=== PATIENT | female | born 1975 | race Caucasian/White ===

== ENCOUNTER 2018-06-20 01:07 | Observation (INO) ==
[2018-06-20] MEDS ORDERED: Sod Chloride 0.9% Inj 1,000 ML IV.SIG ONE (01:58)
--- NOTE | 2018-06-20 02:16 | XR ---
EXAM DATE: 06/20/2018 1:58 AM EDT AGE/SEX: 43 years / Female INDICATIONS: Shortness of breath. CLINICAL DATA: This is the patient's initial encounter. Patient reports that signs and symptoms have been present for 2 days and indicates a pain score of 0/10. MEDICAL/SURGICAL HISTORY: None. None. COMPARISON: No prior exams available for comparison. FINDINGS: Portable AP view of the chest demonstrates a normal-sized cardiac silhouette. No effusion, consolidat ion, or pneumothorax is identified. The bones and soft tissues demonstrate no acute finding. CONCLUSION: No acute cardiopulmonary abnormality is identified. Electronically signed by: Ivan Garcia MD 06/20/2018 2:14 AM EDT
[2018-06-20 02:17] LABS: Baso # (Auto) 0.1 th/mm3 (0.0-0.2); Baso % (Auto) 0.6 % (0.0-2.0); Eos % (Auto) 0.1 % (0.0-4.0); Hematocrit 40.3 % (35.0-46.0); Hemoglobin 14.4 gm/dL (11.6-15.3); Lymph # (Auto) 2.5 th/mm3 (1.0-4.8); Lymph % (Auto) 27.6 % (9.0-44.0); Mean Corpuscular HGB Conc 35.7 % (32.0-36.0); Mean Corpuscular Hemoglobin 31.8 pg (27.0-34.0); Mean Corpuscular Volume 88.9 fL (80.0-100.0); Mean Platelet Volume 7.7 fL (7.0-11.0); Mono # (Auto) 0.6 th/mm3 (0.0-0.9); Mono % (Auto) 6.6 % (0.0-8.0); Neut # (Auto) 5.9 th/mm3 (1.8-7.7); Neut % (Auto) 65.1 % (16.0-70.0); Platelet Count 330 th/mm3 (150-450); Red Blood Count 4.54 mil/mm3 (4.00-5.30); Red Cell Distribution Width 16.8 % (11.6-17.2); White Blood Count 9.1 th/mm3 (4.0-11.0)
--- NOTE | 2018-06-20 02:30 | CT ---
EXAM DATE: 06/20/2018 2:07 AM EDT AGE/SEX: 43 years / Female INDICATIONS: Altered mental status. CLINICAL DATA: This is the patient's initial encounter. Patient reports that signs and symptoms have been present for 1 day and indicates a pain score of 0/10. MEDICAL/SURGICAL HISTORY: Hepatitis C. Drug abuse. None. RADIATION DOSE: 56.35 CTDI (mGy) COMPARISON: No prior exams available for comparison. TECHNIQUE: CT of the head without contrast. Using automated exposure control and adjustment of the mA and/or kV according to patient size, radiation dose was kept as low as reasonably achievable to ob tain optimal diagnostic quality images. DICOM format image data is available electronically for revi ew and comparison. FINDINGS: Cerebrum: The ventricles are normal. No midline shift, mass lesion, hemorrhage or acute infarction. No extraaxial fluid collections are seen. Posterior Fossa: The cerebellum and brainstem demonstrate no acute abnormality. The 4th ventricle is midline. The cerebellopontine angle is within normal limits. Extracranial: There is partially visualized mucoperiosteal thickening in the right maxillary antrum. The remaining visualized sinuses are clear. Skull: The calvaria is intact. No skull fracture. CONCLUSION: No acute intracranial abnormality is identified. . Electronically signed by: Ivan Garcia MD 06/20/2018 2:29 AM EDT
[2018-06-20 02:31] LABS: Anion Gap 12 meq/L (5-15)
[2018-06-20 02:44] LABS: Alanine Aminotransferase 11 U/L (10-53); Alkaline Phosphatase 66 U/L (45-117); Aspartate Aminotransferase 12 U/L (15-37); Blood Urea Nitrogen 4 mg/dL (7-18); Chloride 104 meq/L (98-107); Glomerular Filtration Rate 28 mL/min (>89); Glucose,Random 107 mg/dL (74-106); Lipase 232 U/L (73-393); Potassium 3.3 meq/L (3.5-5.1); Sodium 142 meq/L (136-145); Total Protein 7.7 g/dL (6.4-8.2)
--- NOTE | 2018-06-20 03:11 | ED ---
HPI General Chief Complaint: Psychiatric Symptoms Stated Complaint: Mental status Time Seen by Provider: 06/20/18 01:58 Source: patient and EMS Mode of arrival: EMS Limitations: no limitations History of Present Illness HPI Narrative: 43-year-old female reportedly found in the street with altered mentation and complaining of depression. Patient was transported with normal range vital signs except for mild sinus tachycardia. Patient admits to having history of anxiety depression and being depressed at this time. Patient potentially drank alcohol reportedly in excess trying to harm herself. Patient states she wants to she is very depressed and told the nurse that she wants to kill herself. Denies substance use or medication overdose. complaint: Reports suicidal ideation and feels depressed Onset (ago): minute(s) Duration: constant History of same: Yes Relieving factors: none Exacerbating factors: alcohol Context: Reports recent alcohol abuse Associated psychiatric symptoms: Reports depression and suicidal ideation; Denies homicidal ideation, racing thoughts, auditory hallucinations, visual hallucinations and delusions Associated symptoms: Denies confusion, headache, shortness of breath, nausea, vomiting, syncope and insomnia Treatments prior to arrival: Reports none If self harm: admits thoughts of self harm and has acted on plan (Intentional excessive alcohol use) Related Data Home Medications Medication Instructions Recorded Confirmed buprenorphine-naloxone [Suboxone] 8 mg SUBLINGUAL TID 04/12/18 06/20/18 gabapentin [Neurontin] 300 mg PO BID 04/12/18 06/20/18 lamotrigine [Lamictal] 15 mg PO DAILY 04/12/18 06/20/18 Allergies Allergy/AdvReac Type Severity Reaction Status Date / Time No Known Allergies Allergy Unverified 06/20/18 01:28 Review of Systems ROS: all other systems reviewed are negative [facility] Medical History Medical History Abuse of both oxycodone and heroin (Acute) Alcoholic (Acute) Depression (Acute) Hepatitis C (Acute) Molly (Acute) Surgical History Surgical History Gastric bypass status for obesity (Acute) Social History Social History Substance History: Past History Second Hand Smoke Exposure: No Smoking Status: Current every day smoker Tobacco Type: Cigarettes How Often Do You Have a Drink Containing Alcohol: 2 to 3 times a week Recent Travel in [place] within the Last 8 Weeks: No Recent Out of Country Travel within the Last 8 Weeks: No Immunization History Tetanus Immunization: Unsure Tetanus Immunization Year if Known: 2009 Exam Narrative Exam Narrative: GENERAL: Well-developed well-nourished female no acute distress no respiratory distress GCS 14 SKIN: Focused skin assessment warm/dry. HEAD: Atraumatic. Normocephalic. No scalp soft tissue swelling abrasion laceration or bony abnormality. EYES: Pupils equal and round and reactive to light. No scleral icterus. No injection or drainage. Her ocular muscles intact. ENT: No nasal bleeding or discharge. Mucous membranes pink and moist. Airway is patent. NECK: Trachea midline. No JVD. Supple no meningismus no nuchal rigidity. CARDIOVASCULAR: Increased regular rate and rhythm. No murmur appreciated. RESPIRATORY: No accessory muscle use. Clear to auscultation. Breath sounds equal bilaterally. Clear to auscultation bilaterally GASTROINTESTINAL: Abdomen soft, non-tender, nondistended. Hepatic and splenic margins not palpable. Positive bowel sounds soft nontender distended nontender no guarding or rebound MUSCULOSKELETAL: No obvious deformities. No clubbing. No cyanosis. No edema. NEUROLOGICAL: Awake but drowsiness. No obvious cranial nerve deficits. Motor grossly within normal limits. Normal speech. PSYCHIATRIC: Depressed mood and affect; poor insight and judgment. Course Initial Documented Vital Signs Temperature 98.8 F 06/20/18 01:28 Pulse Rate 109 H 06/20/18 01:28 Respiratory Rate 18 06/20/18 01:28 Blood Pressure 118/74 06/20/18 01:28 Pulse Oximetry 100 06/20/18 01:28 Last Documented Vital Signs Temperature 98.4 F 06/20/18 07:04 Pulse Rate 102 H 06/20/18 11:00 Respiratory Rate 18 06/20/18 11:00 Blood Pressure 119/78 06/20/18 11:00 Pulse Oximetry 97 06/20/18 11:00 Sign Out Sign Out Data: Patient Sign Out occurred on 06/20/18 at 09:34. Patient's care was discussed, and care was transferred from Kalyani Diaz MD to Sree Vázquez MD. Sign Out Comment: 43-year-old female with history of anxiety depression admits to depression and wanting to tell herself is a Parks act for suicidal ideation admitted to alcohol ingestion identified to have minimally elevated alcohol level salicylate level of 4.4 patient has repeat BMP, salicylate level, serum osmolality level and beta hydroxybutyric acid level due at 9:45 AM care signed over to oncoming physician Dr. Frias for follow-up of pending labs and patient disposition for medical clearance for psychiatric admission for suicidal ideation and depression Last updated by Kalyani Diaz MD at 06/20/18 07:51 Post-Handoff Eval: This case is checked out to me by Dr. Diaz. I have evaluated the patient. I reviewed the lab studies. The second set of labs are sent somewhat improved. She still has prominent ketone smelling breath. She does not feel well. The nurse is reviewed again with poison control and she is not medically cleared at this point. They recommend at least 4 more hours of IV fluid followed by another round of metabolic lab studies. I discussed with the hospitalist who will admit here to the hospital with psychiatric consultation as she is under the Parks act. She does admit to drinking a bottle of rubbing alcohol along with a lot of beers. Medical Decision Making MDM Narrative Medical decision making narrative: Patient with intentional alcohol consumption and admits to being depressed wanting to harm herself and stating she wants to . Patient placed on monitor IV access obtained specimens collected and sent for resulting Parks act ordered Patient administered IV fluid bolus Patient resting comfortably mild hypokalemia additional bolus of normal saline poison control contacted recommends obtaining additional basic metabolic panel pain hydroxybutyric acid and serum osmole laterality. At 7 AM patient is asleep but easily awakened and otherwise resting comfortably waiting additional lab work per poison control prior to medical clearance for psychiatric evaluation and admission Medical Screen Exam Complete: Yes Emergency Medical Condition: Yes Differential Diagnosis Differential Diagnosis: Alcohol ingestion, polysubstance ingestion, intentional overdose, arrhythmia, electrolyte disturbance, ICH, minor closed head injury, Medical Records Medical records reviewed: Yes I reviewed the patient's medical records. Lab Data Lab results reviewed: Yes I reviewed the patient's lab results. Result diagrams: 06/20/18 02:00 06/20/18 09:30 POC Results POC Urine Results Negative Lab Results 06/20/18 06/20/18 06/20/18 Range/Units 02:00 02:00 02:00 WBC 9.1 (4.0-11.0) th/mm3 RBC 4.54 (4.00-5.30) mil/mm3 Hgb 14.4 (11.6-15.3) gm/dL Hct 40.3 (35.0-46.0) % MCV 88.9 (80.0-100.0) fL MCH 31.8 (27.0-34.0) pg MCHC 35.7 (32.0-36.0) % RDW 16.8 (11.6-17.2) % Plt Count 330 (150-450) th/mm3 MPV 7.7 (7.0-11.0) fL Neut % (Auto) 65.1 (16.0-70.0) % Lymph % (Auto) 27.6 (9.0-44.0) % [place] % (Auto) 6.6 (0.0-8.0) % Eos % (Auto) 0.1 (0.0-4.0) % Baso % (Auto) 0.6 (0.0-2.0) % Neut # (Auto) 5.9 (1.8-7.7) th/mm3 Lymph # (Auto) 2.5 (1.0-4.8) th/mm3 [place] # (Auto) 0.6 (0.0-0.9) th/mm3 Eos # (Auto) 0.0 (0.0-0.4) th/mm3 Baso # (Auto) 0.1 (0.0-0.2) th/mm3 WBC Differential . Differential Comment Auto diff final PT 10.0 (9.8-11.6) sec INR 1.0 Ratio Sodium 142 (136-145) meq/L Potassium 3.3 L (3.5-5.1) meq/L Chloride 104 (98-107) meq/L Carbon Dioxide 26.0 (21.0-32.0) meq/L Anion Gap 12 (5-15) meq/L BUN 4 L (7-18) mg/dL Creatinine 1.97 H (0.50-1.00) mg/dL Estimated GFR 28 L (>89) mL/min Random Glucose 107 H (74-106) mg/dL Osmolality (275-295) mosm/kg Lactic Acid (0.4-2.0) mmol/L Calcium 9.0 (8.5-10.1) mg/dL Total Bilirubin 0.3 (0.2-1.0) mg/dL AST 12 L (15-37) U/L ALT 11 (10-53) U/L Alkaline Phosphatase 66 (45-117) U/L Troponin I Less than 0.02 L (0.02-0.05) ng/mL Total Protein 7.7 (6.4-8.2) g/dL Albumin 4.0 (3.4-5.0) g/dL Lipase 232 (73-393) U/L Beta-Hydroxybutyric Acd (0.00-0.39) mmol/L Urine Color (Yellw/Straw) Urine Clarity (Clear) Urine pH (5.0-8.5) Ur Specific [place] (1.002-1.035) Urine Protein (Neg-Trace) mg/dL Urine Glucose (UA) (Negative) mg/dL Urine Ketones (Negative) mg/dL Urine Occult Blood (Negative) Urine Nitrate (Negative) Urine Bilirubin (Negative) Urine Urobilinogen (Less than 2) mg/dL Ur Leukocyte Esterase (Negative) Urine RBC (0-3) /hpf Urine WBC (0-5) /hpf Ur Squamous Epith Cells (0-5) /hpf Urine Bacteria (None) /hpf Urine Mucus (Occasional) /lpf Micro UA Comment Ur Microscopic Review Urine Culture Comments Salicylates (2.8-20.0) mg/dL Urine Opiates Screen (Neg) Acetaminophen Less than 2.0 L (10.0-30.0) mcg/mL Ur Barbiturates Screen (Neg) Ur Amphetamines Screen (Neg) U Benzodiazepines Scrn (Neg) Urine Cocaine Screen (Neg) U Cannabinoids Screen (Neg) Serum Alcohol Less than 3 (0-5) mg/dL 06/20/18 06/20/18 06/20/18 Range/Units 02:00 02:05 03:10 WBC (4.0-11.0) th/mm3 RBC (4.00-5.30) mil/mm3 Hgb (11.6-15.3) gm/dL Hct (35.0-46.0) % MCV (80.0-100.0) fL MCH (27.0-34.0) pg MCHC (32.0-36.0) % RDW (11.6-17.2) % Plt Count (150-450) th/mm3 MPV (7.0-11.0) fL Neut % (Auto) (16.0-70.0) % Lymph % (Auto) (9.0-44.0) % [place] % (Auto) (0.0-8.0) % Eos % (Auto) (0.0-4.0) % Baso % (Auto) (0.0-2.0) % Neut # (Auto) (1.8-7.7) th/mm3 Lymph # (Auto) (1.0-4.8) th/mm3 [place] # (Auto) (0.0-0.9) th/mm3 Eos # (Auto) (0.0-0.4) th/mm3 Baso # (Auto) (0.0-0.2) th/mm3 WBC Differential Differential Comment PT (9.8-11.6) sec INR Ratio Sodium (136-145) meq/L Potassium (3.5-5.1) meq/L Chloride (98-107) meq/L Carbon Dioxide (21.0-32.0) meq/L Anion Gap (5-15) meq/L BUN (7-18) mg/dL Creatinine (0.50-1.00) mg/dL Estimated GFR (>89) mL/min Random Glucose (74-106) mg/dL Osmolality (275-295) mosm/kg Lactic Acid 1.8 (0.4-2.0) mmol/L Calcium (8.5-10.1) mg/dL Total Bilirubin (0.2-1.0) mg/dL AST (15-37) U/L ALT (10-53) U/L Alkaline Phosphatase (45-117) U/L Troponin I (0.02-0.05) ng/mL Total Protein (6.4-8.2) g/dL Albumin (3.4-5.0) g/dL Lipase (73-393) U/L Beta-Hydroxybutyric Acd (0.00-0.39) mmol/L Urine Color (Yellw/Straw) Urine Clarity (Clear) Urine pH (5.0-8.5) Ur Specific [place] (1.002-1.035) Urine Protein (Neg-Trace) mg/dL Urine Glucose (UA) (Negative) mg/dL Urine Ketones (Negative) mg/dL Urine Occult Blood (Negative) Urine Nitrate (Negative) Urine Bilirubin (Negative) Urine Urobilinogen (Less than 2) mg/dL Ur Leukocyte Esterase (Negative) Urine RBC (0-3) /hpf Urine WBC (0-5) /hpf Ur Squamous Epith Cells (0-5) /hpf Urine Bacteria (None) /hpf Urine Mucus (Occasional) /lpf Micro UA Comment Ur Microscopic Review Urine Culture Comments Salicylates 4.4 (2.8-20.0) mg/dL Urine Opiates Screen Neg (Neg) Acetaminophen (10.0-30.0) mcg/mL Ur Barbiturates Screen Neg (Neg) Ur Amphetamines Screen Neg (Neg) U Benzodiazepines Scrn Neg (Neg) Urine Cocaine Screen Neg (Neg) U Cannabinoids Screen Neg (Neg) Serum Alcohol (0-5) mg/dL 06/20/18 06/20/18 06/20/18 Range/Units 03:10 03:45 09:30 WBC (4.0-11.0) th/mm3 RBC (4.00-5.30) mil/mm3 Hgb (11.6-15.3) gm/dL Hct (35.0-46.0) % MCV (80.0-100.0) fL MCH (27.0-34.0) pg MCHC (32.0-36.0) % RDW (11.6-17.2) % Plt Count (150-450) th/mm3 MPV (7.0-11.0) fL Neut % (Auto) (16.0-70.0) % Lymph % (Auto) (9.0-44.0) % [place] % (Auto) (0.0-8.0) % Eos % (Auto) (0.0-4.0) % Baso % (Auto) (0.0-2.0) % Neut # (Auto) (1.8-7.7) th/mm3 Lymph # (Auto) (1.0-4.8) th/mm3 [place] # (Auto) (0.0-0.9) th/mm3 Eos # (Auto) (0.0-0.4) th/mm3 Baso # (Auto) (0.0-0.2) th/mm3 WBC Differential Differential Comment PT (9.8-11.6) sec INR Ratio Sodium 143 142 (136-145) meq/L Potassium 3.1 L 4.2 D (3.5-5.1) meq/L Chloride 106 111 H (98-107) meq/L Carbon Dioxide 25.9 25.7 (21.0-32.0) meq/L Anion Gap 11 5 (5-15) meq/L BUN 5 L 5 L (7-18) mg/dL Creatinine 1.95 H 1.69 H (0.50-1.00) mg/dL Estimated GFR 28 L 33 L (>89) mL/min Random Glucose 108 H 101 (74-106) mg/dL Osmolality 327 H (275-295) mosm/kg Lactic Acid (0.4-2.0) mmol/L Calcium 8.4 L 8.0 L (8.5-10.1) mg/dL Total Bilirubin (0.2-1.0) mg/dL AST (15-37) U/L ALT (10-53) U/L Alkaline Phosphatase (45-117) U/L Troponin I (0.02-0.05) ng/mL Total Protein (6.4-8.2) g/dL Albumin (3.4-5.0) g/dL Lipase (73-393) U/L Beta-Hydroxybutyric Acd 0.43 H (0.00-0.39) mmol/L Urine Color Red (Yellw/Straw) Urine Clarity Clear (Clear) Urine pH 8.0 (5.0-8.5) Ur Specific [place] 1.003 (1.002-1.035) Urine Protein 100 H (Neg-Trace) mg/dL Urine Glucose (UA) Negative (Negative) mg/dL Urine Ketones Trace H (Negative) mg/dL Urine Occult Blood Large H (Negative) Urine Nitrate Negative (Negative) Urine Bilirubin Negative (Negative) Urine Urobilinogen Less than 2 (Less than 2) mg/dL Ur Leukocyte Esterase Trace H (Negative) Urine RBC 2 (0-3) /hpf Urine WBC 7 H (0-5) /hpf Ur Squamous Epith Cells 1 (0-5) /hpf Urine Bacteria Moderate H (None) /hpf Urine Mucus Few H (Occasional) /lpf Micro UA Comment Culture indicated Ur Microscopic Review Not Reportable Urine Culture Comments Culture indicated Salicylates (2.8-20.0) mg/dL Urine Opiates Screen (Neg) Acetaminophen (10.0-30.0) mcg/mL Ur Barbiturates Screen (Neg) Ur Amphetamines Screen (Neg) U Benzodiazepines Scrn (Neg) Urine Cocaine Screen (Neg) U Cannabinoids Screen (Neg) Serum Alcohol (0-5) mg/dL 06/20/18 06/20/18 Range/Units 09:30 09:30 WBC (4.0-11.0) th/mm3 RBC (4.00-5.30) mil/mm3 Hgb (11.6-15.3) gm/dL Hct (35.0-46.0) % MCV (80.0-100.0) fL MCH (27.0-34.0) pg MCHC (32.0-36.0) % RDW (11.6-17.2) % Plt Count (150-450) th/mm3 MPV (7.0-11.0) fL Neut % (Auto) (16.0-70.0) % Lymph % (Auto) (9.0-44.0) % [place] % (Auto) (0.0-8.0) % Eos % (Auto) (0.0-4.0) % Baso % (Auto) (0.0-2.0) % Neut # (Auto) (1.8-7.7) th/mm3 Lymph # (Auto) (1.0-4.8) th/mm3 [place] # (Auto) (0.0-0.9) th/mm3 Eos # (Auto) (0.0-0.4) th/mm3 Baso # (Auto) (0.0-0.2) th/mm3 WBC Differential Differential Comment PT (9.8-11.6) sec INR Ratio Sodium (136-145) meq/L Potassium (3.5-5.1) meq/L Chloride (98-107) meq/L Carbon Dioxide (21.0-32.0) meq/L Anion Gap (5-15) meq/L BUN (7-18) mg/dL Creatinine (0.50-1.00) mg/dL Estimated GFR (>89) mL/min Random Glucose (74-106) mg/dL Osmolality 321 H (275-295) mosm/kg Lactic Acid (0.4-2.0) mmol/L Calcium (8.5-10.1) mg/dL Total Bilirubin (0.2-1.0) mg/dL AST (15-37) U/L ALT (10-53) U/L Alkaline Phosphatase (45-117) U/L Troponin I (0.02-0.05) ng/mL Total Protein (6.4-8.2) g/dL Albumin (3.4-5.0) g/dL Lipase (73-393) U/L Beta-Hydroxybutyric Acd 0.17 (0.00-0.39) mmol/L Urine Color (Yellw/Straw) Urine Clarity (Clear) Urine pH (5.0-8.5) Ur Specific [place] (1.002-1.035) Urine Protein (Neg-Trace) mg/dL Urine Glucose (UA) (Negative) mg/dL Urine Ketones (Negative) mg/dL Urine Occult Blood (Negative) Urine Nitrate (Negative) Urine Bilirubin (Negative) Urine Urobilinogen (Less than 2) mg/dL Ur Leukocyte Esterase (Negative) Urine RBC (0-3) /hpf Urine WBC (0-5) /hpf Ur Squamous Epith Cells (0-5) /hpf Urine Bacteria (None) /hpf Urine Mucus (Occasional) /lpf Micro UA Comment Ur Microscopic Review Urine Culture Comments Salicylates 4.1 (2.8-20.0) mg/dL Urine Opiates Screen (Neg) Acetaminophen (10.0-30.0) mcg/mL Ur Barbiturates Screen (Neg) Ur Amphetamines Screen (Neg) U Benzodiazepines Scrn (Neg) Urine Cocaine Screen (Neg) U Cannabinoids Screen (Neg) Serum Alcohol (0-5) mg/dL Imaging Data Radiologist's impression: Chest X-Ray 06/20/18 01:58 CONCLUSION: No acute cardiopulmonary abnormality is identified. Head CT 06/20/18 01:58 CONCLUSION: No acute intracranial abnormality is identified. . ECG Data EKG Prior to Arrival: No Interpretation: EKG: Sinus tachycardia rate [address] elevation injury pattern or ectopy noted Discharge Plan Discharge Disposition Patient Disposition: 30 Still Patient Discharge Details Diagnosis: Suicidal ideation, Drug-induced psychotic disorder, Depression, Toxic effect of rubbing alcohol Physicians Team ED Provider: Sree Vázquez Primary Care Provider: Primary Care Luz Cardnoa Rxs /Orders / Referrals /Forms Prescriptions: No Action lamotrigine [Lamictal] 25 mg Tablet 15 mg PO DAILY RF: 0 gabapentin [Neurontin] 300 mg Capsule 300 mg PO BID RF: 0 buprenorphine-naloxone [Suboxone] 8-2 mg Film 8 mg Sublingual TID RF: 0 Discharge Interventions Interventions: Vital Signs Last Done: 06/20/18 11:00 Status ED Status: With Doctor
[2018-06-20] MEDS ORDERED: Sod Chloride 0.9% Inj 1,000 ML IV.SIG SCH (03:15)
[2018-06-20 03:35] LABS: Bacteria,Urine Moderate /hpf; Bilirubin,Urine Negative (Negative); Clarity,Urine Clear (Clear); Color,Urine Red (Yellw/Straw); Glucose,Urine (UA) Negative (Negative); Leukocyte Esterase,Urine Trace (Negative); Mucus,Urine Few /lpf (Occasional); Nitrite,Urine Negative (Negative); Specific Gravity,Urine 1.003 (1.002-1.035); Squamous Epithelial Cell,Urine 1 /hpf (0-5)
[2018-06-20 03:40] LABS: Amphetamine Screen,Urine Neg (Neg); Barbiturate Screen,Urine Neg (Neg); Cannabinoid Screen,Urine Neg (Neg); Cocaine Screen,Urine Neg (Neg)
[2018-06-20 03:41] LABS: Opiate Screen,Urine Neg (Neg)
[2018-06-20 04:22] LABS: Beta Hydroxybutyric Acid 0.43 mmol/L (0.00-0.39); Calcium 8.4 mg/dL (8.5-10.1); Carbon Dioxide 25.9 meq/L (21.0-32.0); Potassium 3.1 meq/L (3.5-5.1)
--- NOTE | 2018-06-20 08:48 | ECG ---
Date Performed: 06/20/2018 Time Performed: 02:29:35 PTAGE: 43 years EKG: SINUS TACHYCARDIA ABNORMAL RHYTHM ECG PREVIOUS TRACING : 09/04/1999 09.40 No significant change from previous tracing noted. DOCTOR: Ulysses Stacy Interpretating Date/Time 06/20/2018 08:46:56
[2018-06-20 10:18] LABS: Carbon Dioxide 25.7 meq/L (21.0-32.0); Potassium 4.2 meq/L (3.5-5.1)
[2018-06-20 10:22] LABS: Beta Hydroxybutyric Acid 0.17 mmol/L (0.00-0.39)
[2018-06-20] MEDS ORDERED: Bisacodyl 10 MG Supp RECTAL PRN (11:30)
--- NOTE | 2018-06-20 11:52 | P.HP ---
History of Present Illness Service: Hospitalist Primary Care Physician: No Primary Care Physician Chief Complaint: Ethanol, isopropyl alcohol ingestion, suicidal attempt History of Present Illness: Ms. El is a 43-year-old female with a history of depression, Hep C who was brought to the hospital under [place] act due to altered mental status, depression, suicidal attempt/ideation, ethanol and isopropyl alcohol use. Patient states that she has been drinking heavily in the last few weeks and yesterday she has been drinking also isopropyl alcohol (rubbing alcohol). She feels that her life is spiraling down and she wanted to end it all yesterday. Her source of depression is from various sources and could not specify. At the time of this interview, patient still has suicidal thoughts. She denies any chest pain, shortness of breath, fever or chills. No changes in bowel or bladder habits. Patient remains under [place] act. Due to isopropyl alcohol use , poison control was contacted. Hospitalist service was requested to manage this patient until medically cleared. Past medical history: Hepatitis C, depression, alcoholism Surgical history: Gastric bypass surgery, breast reduction surgery. Social history: Patient smokes about a pack a day. She has been drinking heavy in the last few weeks. She also drank isopropyl alcohol Family history: Mother had depression as well. Review of Systems All other systems reviewed negative except as stated in HPI PMFSH - History History Provided By: Patient, Regional Merchandising Manager / EMT - Medical History Medical History: Medical History (Last Reviewed 06/20/18 @ 07:44 by Kalyani Diaz MD) Abuse of both oxycodone and heroin Alcoholic Depression Hepatitis C Molly - Surgical History Surgical History: Surgical History (Last Reviewed 06/20/18 @ 07:44 by Kalyani Diaz MD) Gastric bypass status for obesity - Tobacco History Second Hand Smoke Exposure: No Tobacco Use In Past 30 Days: Yes Smoking Status: Current every day smoker Tobacco Type: Cigarettes - Alcohol History How Often Do You Have a Drink Containing Alcohol: 2 to 3 times a week - Substance Use History Substance History: Past History - Travel History Recent Travel in the [place] Within the Last 8 Weeks: No Recent Travel Out of the Country Within the Last 8 Weeks: No - Immunization History Tetanus Immunization: Unsure Tetanus Immunization Year if Known: 2009 Medications and Allergies Active Medications: Active Medications Al Hydroxide/Mg Hydroxide (Milk Of Magnesia Liq) 30 ml PO Q12H PRN PRN Reason: Mild Constipation Bisacodyl (Dulcolax Supp) 10 mg RECTAL DAILY PRN PRN Reason: SEVERE CONSITIPATION Sodium Chloride (Ns Inj) 1,000 mls @ 0 mls/hr IV.SIG BOLUS BRUNA Last Infusion: 06/20/18 05:47 Dose: Infused Sodium Chloride (Ns Inj) 1,000 mls @ 100 mls/hr IV.CONT .Q10H BRUNA Lactulose (Lactulose Liq) 30 ml PO DAILY PRN PRN Reason: SEVERE CONSITIPATION Ondansetron HCl (Zofran Inj) 4 mg IV.PUSH Q6H PRN PRN Reason: NAUSEA OR VOMITING Sennosides (Senokot) 17.2 mg PO Q12H PRN PRN Reason: Moderate Constipation Allergies Allergy/AdvReac Type Severity Reaction Status Date / Time No Known Allergies Allergy Unverified 06/20/18 01:28 Home Medications Medication Instructions Recorded Confirmed Type buprenorphine-naloxone [Suboxone] 8 mg SUBLINGUAL TID 04/12/18 06/20/18 History gabapentin [Neurontin] 300 mg PO BID 04/12/18 06/20/18 History lamotrigine [Lamictal] 15 mg PO DAILY 04/12/18 06/20/18 History Exam Vital signs: Vital Signs 06/20/18 01:28 06/20/18 02:00 06/20/18 03:00 Temperature 98.8 F Pulse Rate 109 H 102 H 104 H Respiratory Rate 18 16 16 Blood Pressure 118/74 110/64 111/70 Pulse Oximetry 100 97 94 L 06/20/18 04:00 06/20/18 05:00 06/20/18 06:00 Temperature Pulse Rate 100 H 109 H 103 H Respiratory Rate 16 16 14 Blood Pressure 132/90 122/89 124/74 Pulse Oximetry 98 100 97 06/20/18 07:04 06/20/18 07:14 06/20/18 08:00 Temperature 98.4 F Pulse Rate 102 H 104 H 96 H Respiratory Rate 20 64 H Blood Pressure 112/86 107/75 Pulse Oximetry 97 97 96 06/20/18 09:00 06/20/18 09:58 06/20/18 10:00 Temperature Pulse Rate 94 H 104 H 98 H Respiratory Rate 74 H 38 H 16 Blood Pressure 109/73 102/61 116/68 Pulse Oximetry 97 99 06/20/18 11:00 Temperature Pulse Rate 102 H Respiratory Rate 18 Blood Pressure 119/78 Pulse Oximetry 97 Intake & Output 06/19/18 06/20/18 06/20/18 18:59 06:59 18:59 Intake Total 2099 Output Total Balance 2099 - - Weight 68.039 kg Intake: IV 2099 NS Inj 1,000 ML @ Wide Open IV. 1999 SIG BOLUS BRUNA Rx#:[id number] Rocephin Inj 1,000 MG In NS Inj 100 / 100 100 ML @ 200 mls/hr IV.SIG ONCE ONE Rx#:[id number] Output: Urine Narrative: GENERAL: This is a well-nourished, well-developed patient, in no apparent distress. SKIN: No rashes, ecchymoses or lesions. Warm and dry. HEAD: Atraumatic. Normocephalic. No temporal or scalp tenderness. EYES: Pupils equal round and reactive. No injection or drainage. ENT: Nose without bleeding, purulent drainage or septal hematoma. Airway patent. NECK: Trachea midline. No lymphadenopathy. Supple, nontender, no meningeal signs. CARDIOVASCULAR: Regular rate and rhythm without murmurs, gallops, or rubs. No JVD. RESPIRATORY: Clear to auscultation. Breath sounds equal bilaterally. No wheezes , rales, or rhonchi. GASTROINTESTINAL: Abdomen soft, non-tender, nondistended. No guarding. MUSCULOSKELETAL: Extremities without clubbing, cyanosis, or edema. NEUROLOGICAL: Awake and alert. Cranial nerves II through XII intact. No focal neurological deficits. Normal speech. Results - Labs CBC & Chem 7: 06/20/18 02:00 06/20/18 09:30 Labs: Laboratory Results - last 24 hr 06/20/18 06/20/18 06/20/18 02:00 02:00 02:00 WBC 9.1 RBC 4.54 Hgb 14.4 Hct 40.3 MCV 88.9 MCH 31.8 MCHC 35.7 RDW 16.8 Plt Count 330 MPV 7.7 Neut % (Auto) 65.1 Lymph % (Auto) 27.6 [place] % (Auto) 6.6 Eos % (Auto) 0.1 Baso % (Auto) 0.6 Neut # (Auto) 5.9 Lymph # (Auto) 2.5 [place] # (Auto) 0.6 Eos # (Auto) 0.0 Baso # (Auto) 0.1 WBC Differential . Differential Comment Auto diff final PT 10.0 INR 1.0 Sodium 142 Potassium 3.3 L Chloride 104 Carbon Dioxide 26.0 Anion Gap 12 BUN 4 L Creatinine 1.97 H Estimated GFR 28 L Random Glucose 107 H Osmolality Lactic Acid Calcium 9.0 Total Bilirubin 0.3 AST 12 L ALT 11 Alkaline Phosphatase 66 Troponin I Less than 0.02 L Total Protein 7.7 Albumin 4.0 Lipase 232 Beta-Hydroxybutyric Acd Urine Color Urine Clarity Urine pH Ur Specific [place] Urine Protein Urine Glucose (UA) Urine Ketones Urine Occult Blood Urine Nitrate Urine Bilirubin Urine Urobilinogen Ur Leukocyte Esterase Urine RBC Urine WBC Ur Squamous Epith Cells Urine Bacteria Urine Mucus Micro UA Comment Ur Microscopic Review Urine Culture Comments Salicylates Urine Opiates Screen Acetaminophen Less than 2.0 L Ur Barbiturates Screen Ur Amphetamines Screen U Benzodiazepines Scrn Urine Cocaine Screen U Cannabinoids Screen Serum Alcohol Less than 3 06/20/18 06/20/18 06/20/18 02:00 02:05 03:10 WBC RBC Hgb Hct MCV MCH MCHC RDW Plt Count MPV Neut % (Auto) Lymph % (Auto) [place] % (Auto) Eos % (Auto) Baso % (Auto) Neut # (Auto) Lymph # (Auto) [place] # (Auto) Eos # (Auto) Baso # (Auto) WBC Differential Differential Comment PT INR Sodium Potassium Chloride Carbon Dioxide Anion Gap BUN Creatinine Estimated GFR Random Glucose Osmolality Lactic Acid 1.8 Calcium Total Bilirubin AST ALT Alkaline Phosphatase Troponin I Total Protein Albumin Lipase Beta-Hydroxybutyric Acd Urine Color Urine Clarity Urine pH Ur Specific [place] Urine Protein Urine Glucose (UA) Urine Ketones Urine Occult Blood Urine Nitrate Urine Bilirubin Urine Urobilinogen Ur Leukocyte Esterase Urine RBC Urine WBC Ur Squamous Epith Cells Urine Bacteria Urine Mucus Micro UA Comment Ur Microscopic Review Urine Culture Comments Salicylates 4.4 Urine Opiates Screen Neg Acetaminophen Ur Barbiturates Screen Neg Ur Amphetamines Screen Neg U Benzodiazepines Scrn Neg Urine Cocaine Screen Neg U Cannabinoids Screen Neg Serum Alcohol 06/20/18 06/20/18 06/20/18 03:10 03:45 09:30 WBC RBC Hgb Hct MCV MCH MCHC RDW Plt Count MPV Neut % (Auto) Lymph % (Auto) [place] % (Auto) Eos % (Auto) Baso % (Auto) Neut # (Auto) Lymph # (Auto) [place] # (Auto) Eos # (Auto) Baso # (Auto) WBC Differential Differential Comment PT INR Sodium 143 142 Potassium 3.1 L 4.2 D Chloride 106 111 H Carbon Dioxide 25.9 25.7 Anion Gap 11 5 BUN 5 L 5 L Creatinine 1.95 H 1.69 H Estimated GFR 28 L 33 L Random Glucose 108 H 101 Osmolality 327 H Lactic Acid Calcium 8.4 L 8.0 L Total Bilirubin AST ALT Alkaline Phosphatase Troponin I Total Protein Albumin Lipase Beta-Hydroxybutyric Acd 0.43 H Urine Color Red Urine Clarity Clear Urine pH 8.0 Ur Specific [place] 1.003 Urine Protein 100 H Urine Glucose (UA) Negative Urine Ketones Trace H Urine Occult Blood Large H Urine Nitrate Negative Urine Bilirubin Negative Urine Urobilinogen Less than 2 Ur Leukocyte Esterase Trace H Urine RBC 2 Urine WBC 7 H Ur Squamous Epith Cells 1 Urine Bacteria Moderate H Urine Mucus Few H Micro UA Comment Culture indicated Ur Microscopic Review Not Reportable Urine Culture Comments Culture indicated Salicylates Urine Opiates Screen Acetaminophen Ur Barbiturates Screen Ur Amphetamines Screen U Benzodiazepines Scrn Urine Cocaine Screen U Cannabinoids Screen Serum Alcohol 06/20/18 06/20/18 09:30 09:30 WBC RBC Hgb Hct MCV MCH MCHC RDW Plt Count MPV Neut % (Auto) Lymph % (Auto) [place] % (Auto) Eos % (Auto) Baso % (Auto) Neut # (Auto) Lymph # (Auto) [place] # (Auto) Eos # (Auto) Baso # (Auto) WBC Differential Differential Comment PT INR Sodium Potassium Chloride Carbon Dioxide Anion Gap BUN Creatinine Estimated GFR Random Glucose Osmolality 321 H Lactic Acid Calcium Total Bilirubin AST ALT Alkaline Phosphatase Troponin I Total Protein Albumin Lipase Beta-Hydroxybutyric Acd 0.17 Urine Color Urine Clarity Urine pH Ur Specific [place] Urine Protein Urine Glucose (UA) Urine Ketones Urine Occult Blood Urine Nitrate Urine Bilirubin Urine Urobilinogen Ur Leukocyte Esterase Urine RBC Urine WBC Ur Squamous Epith Cells Urine Bacteria Urine Mucus Micro UA Comment Ur Microscopic Review Urine Culture Comments Salicylates 4.1 Urine Opiates Screen Acetaminophen Ur Barbiturates Screen Ur Amphetamines Screen U Benzodiazepines Scrn Urine Cocaine Screen U Cannabinoids Screen Serum Alcohol - Imaging Impressions Chest X-Ray 06/20/18 01:58 CONCLUSION: No acute cardiopulmonary abnormality is identified. Head CT 06/20/18 01:58 CONCLUSION: No acute intracranial abnormality is identified. . Caprini VTE Risk Assessment Caprini VTE Risk Assessment: No/Low Risk (score <= 1) Caprini Risk Assessment Model: Point Value = 1 Point Value = 2 Point Value = 3 Point Value = 5 Age 41-60 Minor surgery BMI > 25 kg/m2 Swollen legs Varicose veins or History of unexplained or recurrent spontaneous Oral contraceptives or hormone replacement Sepsis (< 1 month) Serious lung disease, including pneumonia (< 1 month) Abnormal pulmonary function Acute myocardial infarction Congestive heart failure (< 1 month) History of inflammatory bowel disease Medical patient at bed rest Age 61-74 Arthroscopic surgery Major open surgery (> 45 min) Laparoscopic surgery (> 45 min) Malignancy Confined to bed (> 72 hours) Immobilizing plaster cast Central venous access Age >= 75 History of VTE Family history of VTE Factor V Leiden Prothrombin [id number] Lupus anticoagulant Anticardiolipin antibodies Elevated serum homocysteine Heparin-induced thrombocytopenia Other congenital or acquired thrombophilia Stroke (< 1 month) Elective arthroplasty Hip, pelvis, or leg fracture Acute spinal cord injury (< 1 month) Prophylaxis Regimen: Total Risk Factor Score Risk Level Prophylaxis Regimen 0-1 Low Early ambulation 2 Moderate Order ONE of the following: *Sequential Compression Device (SCD) *Heparin 5000 units SQ BID 3-4 Higher Order ONE of the following medications: *Heparin 5000 units SQ TID *Enoxaparin/Lovenox 40 mg SQ daily (WT < 150 kg, CrCl > 30 mL/min) *Enoxaparin/Lovenox 30 mg SQ daily (WT < 150 kg, CrCl > 10-29 mL/min) *Enoxaparin/Lovenox 30 mg SQ BID (WT < 150 kg, CrCl > 30 mL/min) AND/OR *Sequential Compression Device (SCD) 5 or more Highest Order ONE of the following medications: *Heparin 5000 units SQ TID (Preferred with Epidurals) *Enoxaparin/Lovenox 40 mg SQ daily (WT < 150 kg, CrCl > 30 mL/min) *Enoxaparin/Lovenox 30 mg SQ daily (WT < 150 kg, CrCl > 10-29 mL/min) *Enoxaparin/Lovenox 30 mg SQ BID (WT < 150 kg, CrCl > 30 mL/min) AND *Sequential Compression Device (SCD) Assessment and Plan - Plan Ms. El is a 43-year-old female who was brought to the hospital under Parks act due to altered mental status, depression, suicidal ideation and heavy alcohol use. She admitted to drinking ethanol as well as isopropyl alcohol. Acute alcohol intoxication Isopropyl alcohol abuse Suicidal ideations Severe depression -We will monitor patient's electrolytes and renal function. -Continue normal saline at 100 cc/h -Start patient on Librium 20 mg p.o. every 8 hours as well as CIWA protocol -We will initiate a sitter in the room. Psychiatric consult. -BMP this afternoon and again in the morning. -Serum Osm 327 --> 321. Beta-Hydroxybutyric 0.43 --> 0.17. -Will consult Psychiatry due to suicidal ideations/attempt, severe depression. Acute kidney injury - Creatinine 1.97 on arrival, Improved to 1.69. - Will monitor. Full code. SCDs.
[2018-06-20] MEDS ORDERED: LORazepam 1 MG Tablet PO PRN (11:55)
[2018-06-20] MEDS ORDERED: Haloperidol Inj 5 MG/ML Ampul IV.PUSH PRN (11:55)
[2018-06-20] MEDS: Sod Chloride 0.9% Inj 1,000 ML IV.CONT SCH ×2 (12:39→21:26)
[2018-06-21] MEDS: Sod Chloride 0.9% Inj 1,000 ML IV.CONT SCH ×2 (02:49→07:55)
[2018-06-21 05:28] LABS: Calcium 7.9 mg/dL (8.5-10.1); Carbon Dioxide 23.4 meq/L (21.0-32.0)
--- NOTE | 2018-06-21 09:32 | MB ---
cc: Ant Palomo MD DATE: 06/21/2018 REQUESTING PHYSICIAN: Dr. Brock. REASON FOR CONSULTATION: [place] Act due to consumption of alcohol including rubbing alcohol. Altered mental status. Severe depression, suicidal ideations. HISTORY OF PRESENT ILLNESS: Ms. Rito Oliveira is a 43-year-old female with a reported history of bipolar disorder, anxiety and PTSD, who presented to the emergency department with altered mental status and complaints of depression. She disclosed to the ED provider that she drank alcohol in excess in an attempt to hurt herself and also told the ED provider that she wanted to and was very depressed. The patient's alcohol level on presentation here was undetectable. It was subsequently uncovered that the patient had perhaps consumed isopropyl alcohol. The patient has been admitted to the medical floor for management of isopropyl alcohol ingestion. Reviewing the electronic medical record, I note that the patient was seen in the ED by the psychiatric nurse practitioner in April of this year. The patient is seen and examined. Chart reviewed. I note [place] Act initiated by ED provider on the paper chart. Case discussed with staff. Sitter is at the bedside. On my examination today, the patient says that she drank a bottle of rubbing alcohol along with some regular ethyl alcohol "to be done with myself." The patient says that she had been planning her suicide attempt the entire day. Acute stressor was court proceeding involving her mother. The patient endorses ongoing depression and suicidal ideation, although she does contract for safety inside the hospital. She says that she is "tired of always struggling." The patient does endorse a history of hypomanic/manic episodes in the past, most recently in March, saying that she was walking around in a prom dress in the middle of the night. 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 She endorses a history of childhood and early adult trauma and reports some nightmares and voices calling her name related to this history of trauma. Remainder of the psychiatric ROS is negative. She has no acute physical complaints. PAST PSYCHIATRIC HISTORY: The patient reports diagnoses as noted above. She is not presently under the care of a psychiatrist. She was previously prescribed Lamictal and gabapentin and says that these medications were efficacious for her psychiatric condition, but she was unable to continue them as she ran out of money. Most recent psychiatric admission was in 2017. She reports one previous suicide attempt by the same mechanism as current suicide attempt in 02/2018. FAMILY HISTORY: The patient reports family history of depression, anxiety, and substance use disorder. Her mother has attempted suicide in the past. CHEMICAL DEPENDENCY HISTORY: The patient reports a history of heroin and Dilaudid abuse. She says that she stopped using opiates 3 years ago and has been on Suboxone since then when she can afford it. She reports ongoing alcohol use and says that she drinks at least 8-10 beers a day. She endorses a history of blackouts, DTs and withdrawal seizures. SOCIAL HISTORY: The patient had been residing with her mother, but is now homeless. She is not presently in a partnered relationship and has a daughter who lives in [place] with daughter's father. She has limited contact with daughter. 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 She denies any history. Denies any access to guns or firearms. She is spiritual. She does endorse a history of trauma as noted above. In fact, the patient reports that she has felony charges and a court date pending for false information on a pawn slip and also dealing in stolen property. PAST MEDICAL HISTORY: The patient reports a history of seizure disorder. MEDICATIONS: The patient presently takes no home medications, but previously has been on Lamictal and gabapentin. REVIEW OF SYSTEMS: Except as noted in HPI, all this is negative. PHYSICAL EXAMINATION: VITAL SIGNS: Temperature 98.7, pulse 89, respirations 20, blood pressure 109/66, pulse oximetry 98% on room air. GENERAL: Physical examination was completed by the primary team. On my examination today, the patient appears to be in no acute physical distress. I do perceive somewhat fruity aroma in the room as I am evaluating the patient, possibly consistent with her reported ingestion of isopropyl alcohol. No signs of intoxication or withdrawal noted. LABORATORY DATA: Laboratories reviewed: CBC unremarkable. CMP reveals decreased GFR at 53. Serum osmolality 321. Beta hydroxybutyrate uric acid was initially elevated at 0.43 but has normalized to 0.17. Urinalysis results reviewed. Urine toxicology negative and alcohol level undetectable. Head CT was read as no acute intracranial abnormality. MENTAL STATUS EXAMINATION: The patient is in hospital attire. She is awake and alert and oriented x4. No motor abnormalities noted. Speech is within normal limits for rate, tone, and volume. Language and fund of knowledge are average. Focus and concentration are intact. Memory grossly intact on clinical exam. Mood is depressed and affect is restricted and consistent with stated mood. Thought process is linear. No loosening of associations. No delusional material elicited. Denies audio, visual hallucinations presently. Endorses ongoing suicidal ideation without specific plan. She does contract for safety on the inpatient unit. No suicidal intent at this time. No homicidal ideation, intent, or plan. Insight and Judgment: Insight seems fair at best and judgment is impulsive. ASSESSMENT AND PLAN: 1. Adjustment disorder with mixed disturbance of emotions and conduct, F43.25. Rule out depressive episode, possibly in the context of bipolar illness. 2. Alcohol dependence, F10.20. This is a 43-year-old female with psychiatric history as detailed above, who is presently admitted to the medical floor under a Parks Act following ingestion of isopropyl alcohol. On my examination today, the patient reports that she made the presenting ingestion in a suicide attempt and endorses ongoing suicidal ideation and low mood now. The patient has several risk factors for ongoing, including substance use and history of previous suicide attempts. The patient requires admission to the Inpatient Psychiatric Unit once medically cleared for psychiatric stabilization. I will defer psychotropic medication management to the inpatient psychiatric team. 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 I would continue the sitter for safety while the patient is on the medical unit. Case discussed with Dr. Huff who is presently attending on the case. Thank you very much for this consultation. Please call or page with questions. MD SANDIE Rodríguez/bibiana , 08:23 AM , 08:38 AM ELIANE
[2018-06-21 10:19] VITALS: O2SAT 100
--- NOTE | 2018-06-21 11:49 | P.PN ---
Subjective Interval history: Nursing denies any deterioration since last night. Nursing reports patient is tolerating p.o. intake. Patient denies any nausea vomiting. Physical Exam Vital signs: Vital Signs 06/20/18 12:00 06/20/18 16:00 06/20/18 20:00 Temperature 98.2 F 98.1 F 98.5 F Pulse Rate 84 93 H 95 H Respiratory Rate 18 16 17 Blood Pressure 115/71 111/63 107/70 Pulse Oximetry 98 98 97 06/20/18 23:48 06/21/18 00:00 06/21/18 08:00 Temperature 98.7 F 97.9 F Pulse Rate 89 90 Respiratory Rate 20 18 Blood Pressure 109/66 105/72 Pulse Oximetry 98 98 100 Intake & Output 06/20/18 06/21/18 06/21/18 18:59 06:59 18:59 Intake Total 1200 / 1200 1000 / 1000 Output Total Balance - / -1 1200 / 1200 1000 / 1000 Weight 68.6 kg Intake: IV 1000 / 1000 NS Inj 1,000 ML @ 100 mls/hr IV 1000 / 1000 .CONT .Q10H BRUNA Rx#:[id number] Oral 1200 / 1200 Output: Urine Other: # Voids 3 3 Date of Last Bowel Movement 06/19/18 06/21/18 06/21/18 Narrative: Heart sounds regular rate rhythm, no murmurs Clear lungs bilaterally, unlabored breathing Awake and alert Results - Labs CBC & Chem 7: 06/20/18 02:00 06/21/18 04:25 Laboratory Results - last 24 hr 06/21/18 04:25 Sodium 145 Potassium 4.0 Chloride 111 H Carbon Dioxide 23.4 Anion Gap 11 BUN 11 Creatinine 1.13 H Estimated GFR 53 L Random Glucose 87 Calcium 7.9 L Assessment and Plan - Plan Ms. El is a 43-year-old female who was brought to the hospital under Parks act due to altered mental status, depression, suicidal ideation and heavy alcohol use. She admitted to drinking ethanol as well as isopropyl alcohol. Acute alcohol intoxication -Resolved Isopropyl alcohol abuse -Outside of clinically high risk zone at this point -discussed with poison control, the patient's gap is closed with her osmolality down to 299. No further close monitoring warranted at this point. Acute kidney injury Near resolution with IV fluids Severe depression Suicidal ideations - psychiatry willing to take patient once medical cleared Full code. SCDs. Discharge Planning: Patient has met maximal benefit from hospitalization is clinically stable for discharge to a psychiatric facility.
[2018-06-21 13:03] VITALS: BP 131/67; PULSE 103; RESP 17; TEMP 98.2
== END 2018-06-21 16:33 ==
LOC: NEPC 01:07 → INTOOBSV 13:13 → NEDA 13:13 → N07 13:15
PROVIDERS: ADMIT Hospitalist; ATTEND Hospitalist

== ENCOUNTER 2018-06-21 16:49 | Inpatient (IN) ==
[2018-06-21] MEDS: Melatonin 5 MG Tablet PO PRN (20:51)
[2018-06-21] MEDS: LORazepam 1 MG Tablet PO PRN (20:53)
[2018-06-22] MEDS: LORazepam 1 MG Tablet PO PRN (05:53)
[2018-06-22] MEDS: Multivitamin/Minerals Therapeutic Tablet PO SCH (08:15)
[2018-06-22] MEDS: Folic Acid 1 MG Tablet PO SCH (08:15)
[2018-06-22 08:49] LABS: Calcium 8.3 mg/dL (8.5-10.1); Carbon Dioxide 27.1 meq/L (21.0-32.0); Potassium 3.8 meq/L (3.5-5.1)
[2018-06-22 08:53] LABS: Chol/HDL Ratio 1.95 Ratio; HDL Cholesterol 80.5 mg/dL (40.0-60.0)
[2018-06-22 13:03] LABS: Hemoglobin A1c 5.1 % (4.3-6.0)
[2018-06-22] MEDS ORDERED: QUEtiapine 25 MG Tablet PO ONE (14:12)
--- NOTE | 2018-06-22 14:20 | P.HPPSY ---
Provisional Diagnosis Admission Date: June 21, 2018 16:50 Competence Certification of Person's Competence To Provide Express and Informed Consent I have personally examined Mya El, a person being served at [facility] on, June 22, 2018 1413. Express and informed consent means consent voluntarily given in writing, by a competent person, after sufficient explanation and disclosure of the subject matter involved to enable the person to make a knowing and willful decision without any element of force, fraud, deceit, duress, or other form of constraint or coercion. This person is 18 years of age or older, is not now known to be incompetent to consent to treatment with a guardian advocate, and does not have a health care surrogate or proxy currently making medical treatment decisions. I have found this person to be one of the following: [X] Competent to provide express and informed consent, as defined above, for voluntary admission to this facility and is competent to provide express and informed consent for treatment. He/she has the consistent capacity to make well reasoned, willful, and knowing decisions concerning his or her medical or mental health treatment. The person fully and consistently understands the purpose of the admission for examination/placement and is fully capable of personally exercising all rights assured under [place] [] Incompetent to provide express and informed consent to voluntary admission, and this is incompetent to provide express and informed consent to treatment. The person must be transferred to involuntary status and a petition for a guardian advocate filed with the Circuit Court. [] Refusing to provide express and informed consent to voluntary admission but is competent to provide express and informed consent for treatment. The person must be discharged or transferred to involuntary status. Form shall be completed within 24 hours of a person's arrival at the receiving facility and filed in the clinical record of each person: 1. Admitted on a voluntary basis 2. Permitted to provide express and informed consent to his/her own treatment 3. Allowed to transfer from involuntary to voluntary status 4. Prior to permitting a person to consent to his or her own treatment after having been previously found incompetent to consent to treatment. History of Present Illness Capacity: Has capacity Chief Complaint: SI History of Present Illness: Patient is a 43-year-old female with an extensive history of alcohol abuse. Patient says secondary to life stressors patient had a suicide attempts with drinking rubbing alcohol. She says she normally drinks 12 pack of beer a day. However per nursing CIWA has been 0 and there is seeking Ativan. She has been homeless since April 11 which is a new status for her. During the interview she is quite irritable, demanding and entitled. Admits to depressed mood and wanting to cry most of the time. However, at this time she denies suicidal or homicidal ideas plan. Past medications include Neurontin 600 mg p.o. 3 times daily and Lamictal. Patient says she had "some facial tics with an unknown antipsychotic. Past psych: Patient admits to at least 20 inpatient admission mostly due to detox from alcohol. She has had 3 suicide attempts all being drinking rubbing alcohol. She says she has been diagnosed with PTSD depression and anxiety and possibly bipolar in the past. Not getting outpatient treatment at this time. Was on Suboxone back in April. Past medical: Seizure a disorder that is not treated, anemia, hep C Past Famhx: "Everybody is everything." Past Social: Patient is working as a prostitute. She has extensive history of substance use but most recently has been abusing alcohol. - Inpatient Certification I certify that the inpatient services were ordered in accordance with Medicare regulations governing the order. This includes certification that hospital inpatient services are reasonable and necessary and in the case of services not specified as inpatient-only under 42 CFR 419.22(n), that they are appropriately provided as inpatient services in accordance to with the 2-midnight benchmark under 43 CFR 412.3(e) I certify that inpatient psychiatric hospital services are medically necessary. Evaluation and treatment and/or diagnostic testing are expected to improve the patient's condition. The patient needs on a daily basis, active treatment furnished directly by or requiring the supervision of inpatient psychiatric facility personnel. Estimated Total Length of Stay (Days): 7 Plans for Post Hospital Care: Not yet determined Review of Systems All other systems reviewed negative except as stated in HPI [facility] - History History Provided By: Patient - Medical History Medical History: Medical History (Last Reviewed 06/22/18 @ 14:17 by Elvin Cameron DO) Abuse of both oxycodone and heroin Alcoholic Depression Hepatitis C Molly - Surgical History Surgical History: Surgical History (Last Reviewed 06/22/18 @ 14:17 by Elvin Cameron DO) Gastric bypass status for obesity - Tobacco History Second Hand Smoke Exposure: Yes Tobacco Use In Past 30 Days: Yes Smoking Status: Current every day smoker Tobacco Type: Cigarettes - Alcohol History How Often Do You Have a Drink Containing Alcohol: 4 or more times a week - Substance Use History Substance History: Active Abuse - Substance Use Type Crack/Cocaine Type: HEROIN Status: Active Route Used: Inhalation, Intravenously Comment: PT HAS A SIGNIFICANT HX OF HEROIN, CRACK, COCAINE AND WEED ABUSE, ALONG WITH 10-12 BEERS/DAY - Immunization History Tetanus Immunization Year if Known: 2009 Medications and Allergies Active Medications: Active Medications Acetaminophen (Tylenol) 650 mg PO Q4H PRN PRN Reason: Pain 1-5 or Temp >101F Al Hydrox/Mg Hydrox/Simethicone (Mag-Al Plus Susp Liq) 30 ml PO Q6H PRN PRN Reason: DYSPEPSIA Al Hydroxide/Mg Hydroxide (Milk Of Magnesia Liq) 30 ml PO Q12H PRN PRN Reason: Mild Constipation Flumazenil (Romazecon Inj) 0.2 mg IV.PUSH Q1M PRN PRN Reason: OVERSEDATION Folic Acid (Folic Acid) 1 mg PO DAILY [facility] Stop: 06/27/18 08:59 Last Admin: 06/22/18 08:15 Dose: 1 mg Gabapentin (Neurontin) 300 mg PO TID BRUNA Hydroxyzine HCl (Atarax) 50 mg PO Q6H PRN PRN Reason: ANXIETY Lorazepam (Ativan) 1 mg PO Q4H PRN PRN Reason: for CIWA 8-10 Last Admin: 06/22/18 05:53 Dose: 1 mg Lorazepam (Ativan Inj) 2 mg IV.PUSH Q2H PRN PRN Reason: for CIWA 11-14 Lorazepam (Ativan Inj) 2 mg IV.PUSH Q1H PRN PRN Reason: for CIWA 15-20 Lorazepam (Ativan Inj) 2 mg IV.PUSH Q15M PRN PRN Reason: for CIWA > 20 Lorazepam (Ativan Inj) 1 mg IV.PUSH Q4H PRN PRN Reason: for CIWA 8-10 Lorazepam (Ativan) 2 mg PO Q2H PRN PRN Reason: for CIWA 11-14 Lorazepam (Ativan Inj) 2 mg IM Q6H PRN PRN Reason: SEIZURES Melatonin (Melatonin) 5 mg PO HS PRN PRN Reason: INSOMNIA Last Admin: 06/21/18 20:51 Dose: 5 mg Multivitamins/Minerals (Theragran-M) 1 tab PO DAILY [facility] Stop: 06/27/18 08:59 Last Admin: 06/22/18 08:15 Dose: 1 tab Nicotine (Habitrol 14 Mg Patch.24 Hr) 1 patch T-DERMAL DAILY PRN PRN Reason: Nicotine craving Patch Removal (Remove Old Patch) 1 each T-DERMAL DAILY [facility] Last Admin: 06/22/18 08:18 Dose: Not Given Quetiapine Fumarate (Seroquel) 25 mg PO ONCE ONE Stop: 06/22/18 14:13 Thiamine HCl (Vitamin B1) 100 mg PO DAILY [facility] Last Admin: 06/22/18 08:15 Dose: 100 mg Allergies Allergy/AdvReac Type Severity Reaction Status Date / Time No Known Allergies Allergy Unverified 06/20/18 01:28 Home Medications Medication Instructions Recorded Confirmed Type buprenorphine-naloxone [Suboxone] 8 mg SUBLINGUAL TID 04/12/18 06/20/18 History gabapentin [Neurontin] 300 mg PO BID 04/12/18 06/20/18 History lamotrigine [Lamictal] 15 mg PO DAILY 04/12/18 06/20/18 History Results - Labs CBC & Chem 7: 06/22/18 07:36 Labs: Laboratory Results - last 24 hr 06/22/18 06/22/18 07:36 07:36 Sodium 143 Potassium 3.8 Chloride 111 H Carbon Dioxide 27.1 Anion Gap 5 BUN 14 Creatinine 0.82 Estimated GFR 76 L Random Glucose 87 Hemoglobin A1c 5.1 Calcium 8.3 L Triglycerides 70 Cholesterol 157 LDL Cholesterol, Calc 63 HDL Cholesterol 80.5 H Cholesterol/HDL Ratio 1.95 Exam Vital signs: Vital Signs 06/21/18 18:19 06/22/18 06:04 Temperature 98.3 F 98.1 F Pulse Rate 83 77 Respiratory Rate 18 17 Blood Pressure 109/76 116/79 Pulse Oximetry 96 Mental Status Examination Appearance: Disheveled Consciousness: Alert Orientation: x4 Motor Activity: Normal gait Speech: Unremarkable Language: Adequate Fund of Knowledge: Adequate Attention and Concentration: Adequate Memory: Unremarkable Mood: Angry, Sad Affect: Sad Thought Process & Associations: Intact Thought Content: Appropriate Hallucination Type: None Delusion Type: None Suicidal Ideation: No Suicidal Plan: No Suicidal Intention: No Homicidal Ideation: No Homicidal Plan: No Homicidal Intention: No Insight: Poor Judgment: Poor Assessment and Plan - Assessment (1) Bipolar disorder, current episode depressed, severe, without psychotic features Code(s): F31.4 - Bipolar disorder, current episode depressed, severe, without psychotic features Status: Acute (2) Alcohol abuse Code(s): F10.10 - Alcohol abuse, uncomplicated Status: Acute - Plan Plan: Estimated LOS: [] days Neurology consult pending for treatment of seizure disorder. Patient can be made voluntary competent and she gives consent for Neurontin 300 mg p.o. 3 times daily and as needed Atarax. Patient gives consent to start a one-time dose of Seroquel to make sure she has no EPS and the provider tomorrow can consider higher dose beginnings of a titration. Justification for Continued Inpatient Stay: Patient would decompensate in a less restrictive setting
[2018-06-22] MEDS: Gabapentin 300 MG Capsule PO SCH (18:47)
[2018-06-23] MEDS: Aluminum/Magnesium/Simethacone Susp 30 ML UDC PO PRN ×2 (07:22→15:13)
[2018-06-23] MEDS: Multivitamin/Minerals Therapeutic Tablet PO SCH (08:25)
[2018-06-23] MEDS: Folic Acid 1 MG Tablet PO SCH (08:25)
[2018-06-23] MEDS: Gabapentin 300 MG Capsule PO SCH ×3 (08:25→17:52)
[2018-06-23] MEDS: Acetaminophen 325 MG Tablet PO PRN ×2 (08:26→21:51)
--- NOTE | 2018-06-23 11:27 | P.PNPSY ---
Subjective Chief Complaint: SI Remarks: Reviewed electronic medical records and discussed case with staff. Follow-up was conducted in [facility] with JOHNNIE Marrero. Patient is ativan seeking. She states that she is not sleeping and requesting seroquel. She states that when she does not sleep this is a trigger and she starts to decompensate. She states other medications do not work for her such as Melatonin and Benadryl. Per note by Dr. Cameron yesterday he was going to order the Seroquel. She is active on the unit talking to others. Nursing reports that she is preoccupied with being discharged as she is suppose to appear in court on Sunday due to multiple felonies. Patient is cooperative. Denies any suicidal or homicidal ideations. Review of Systems All other systems reviewed negative except as stated in HPI Mental Status Examination Appearance: Appropriate Consciousness: Alert Orientation: x4 Motor Activity: Normal gait Speech: Unremarkable Language: Adequate Fund of Knowledge: Adequate Attention and Concentration: Adequate Memory: Unremarkable Mood: Angry, Sad Affect: Sad Thought Process & Associations: Intact Thought Content: Appropriate Hallucination Type: None Delusion Type: None Suicidal Ideation: No Suicidal Plan: No Suicidal Intention: No Homicidal Ideation: No Homicidal Plan: No Homicidal Intention: No Insight: Fair Judgment: Impulsive Assessment and Plan - Assessment (1) Bipolar disorder, current episode depressed, severe, without psychotic features Code(s): F31.4 - Bipolar disorder, current episode depressed, severe, without psychotic features Status: Acute (2) Alcohol abuse Code(s): F10.10 - Alcohol abuse, uncomplicated Status: Acute - Plan Plan: Estimated LOS: [] days Continue current treatment plan. She will be seen by Psychiatrist on Sunday. Justification for Continued Inpatient Stay: Moving patient to a less restrictive environment may result in her decompensation.
--- NOTE | 2018-06-23 16:44 | MB ---
cc: Nuria Antoine MD DATE: 06/23/2018 REASON FOR CONSULTATION: History of seizures. HISTORY OF PRESENT ILLNESS: This is a 43-year-old woman with a history of depression, hepatitis C, apparently came in under [employer] due to altered mental status, depression, suicidal attempt ideation, ethanol and isopropyl alcohol use. Apparently had been drinking heavily in the last few weeks and the day before admission was drinking rubbing alcohol. PAST MEDICAL HISTORY: As stated. She states also that she had two what she describes as grand mal seizures in 2016. The etiology is unknown. She states she has had head trauma in the past. Does not know much about her family history. She has been in homes. PAST SURGICAL HISTORY: Gastric bypass, breast reduction. SOCIAL HISTORY: Smoker of a pack a day, drinking heavily last few weeks, drinking alcohol the day prior. FAMILY HISTORY: Depression in her mother. PHYSICAL EXAMINATION: VITAL SIGNS: Temperature is 98.3, pulse 103, respiratory rate 17, blood pressure 125/74. GENERAL: She is awake, alert, fluent. Pupils reactive. There is no nystagmus. Face is symmetrical. Tongue midline. MOTOR: She does not have any drift or leg lag. Ambulating normal. No tremor noted. LABORATORY DATA: Reviewed. GFR 76, calcium 8.3. HDL 80, LDL 63, triglycerides 70, cholesterol 157. Prior to that, her CBC was unremarkable on 06/20/2018; 06/22/2018 chemistries as discussed. TSH was normal as well and reports she did have a CT of the head that was unremarkable. She states she takes gabapentin for her migraines. She is on 300 currently three times a day; I certainly would continue that medication. ASSESSMENT AND PLAN: A 43-year-old woman with questionable history of seizures. She states she has had two in 2016. Etiology of that could have been from alcohol. However, currently she is on gabapentin. I did order an EEG. I would not put her on any other antiepileptics at this point, but if she does get frequent headaches certainly you can consider adding topiramate 25 mg b.i.d. as headache preventative, may help her mood. EEG is pending. If EEG is unremarkable and she is stable, from my perspective, she can be discharged on her current medication and consideration, if okay with psychiatry, to add topiramate 25 mg b.i.d. MD Mack Mcwilliams , 01:54 PM , 02:02 PM
[2018-06-23] MEDS ORDERED: QUEtiapine 25 MG Tablet PO SCH (21:00)
[2018-06-24] MEDS: Aluminum/Magnesium/Simethacone Susp 30 ML UDC PO PRN (06:00)
[2018-06-24] MEDS: Folic Acid 1 MG Tablet PO SCH (08:58)
[2018-06-24] MEDS: Multivitamin/Minerals Therapeutic Tablet PO SCH (08:58)
[2018-06-24] MEDS: Gabapentin 300 MG Capsule PO SCH ×2 (08:58→17:42)
--- NOTE | 2018-06-24 13:40 | P.PNPSY ---
Subjective Chief Complaint: SI Remarks: Patient seen and examined with nurse. Chart reviewed. Case discussed with nursing staff. No reported behavioral issues. CIWA score is reportedly minimal. On my examination today, the patient complains of ongoing low mood and anxiety. She also complains of some recurring dreams, which she relates to history of trauma. She notes that she is only on half of her home dose of gabapentin (home dose is 600 mg 3 times daily per patient), and she would like to resume her home dose noting that she is experiencing "clicking" and flashes of light, which she reports are seizure auras. EEG was ordered by neurology and is pending. Denies side effects from medications. Patient complains of nausea/cramping and diarrhea, and I will request a hospitalist consultation for this issue. No other physical complaints. Vital Signs Temp Pulse Resp BP Pulse Ox 06/24/18 04:56 97.9 F 91 H 17 109/71 98 06/23/18 17:39 99.2 F 107 H 16 104/66 99 Intake and Output 06/24/18 06/24/18 06/24/18 06:59 14:59 22:59 Other: Weight 70.3 kg Labs reviewed. No new labs. Review of Systems All other systems reviewed negative except as stated in HPI Mental Status Examination Appearance: Appropriate Consciousness: Alert Orientation: x4 Motor Activity: Normal gait, Other (No motor abnormalities noted. No ictal activity noted. No signs of withdrawal noted.) Speech: Unremarkable Language: Adequate Fund of Knowledge: Adequate Attention and Concentration: Adequate Memory: Unremarkable (Grossly intact on clinical exam) Mood: Sad, Anxious Affect: Blunt Thought Process & Associations: Intact Thought Content: Appropriate Hallucination Type: Other (Flashes and clicking as noted above, otherwise none) Delusion Type: None Suicidal Ideation: No Suicidal Plan: No Suicidal Intention: No Homicidal Ideation: No Homicidal Plan: No Homicidal Intention: No Insight: Fair Judgment: Impulsive Assessment and Plan - Assessment (1) Bipolar disorder, current episode depressed, severe, without psychotic features Code(s): F31.4 - Bipolar disorder, current episode depressed, severe, without psychotic features Status: Acute (2) Alcohol abuse Code(s): F10.10 - Alcohol abuse, uncomplicated Status: Acute - Plan Plan: Titrate Seroquel to 100 mg at bedtime for mood stabilization. Titrate gabapentin to 600 mg 3 times daily, reported home dose. Neurology consultation noted and appreciated. I do note that the neurologist recommended initiation of Topamax, and we might consider initiating this agent later in the hospital stay, but I will hold off for now to avoid making too many medication changes at once. Hospitalist consultation and C. difficile PCR. Check beta hCG. Continue to monitor on the inpatient unit. Continue other medications and care as ordered. Justification for Continued Inpatient Stay: Medication changes. High risk for decompensation in less restrictive environment. Discharge Planning: Pending psychiatric stabilization. Request Healthcare Surrogate/Guardian Advocate?: No
[2018-06-24] MEDS: LORazepam 1 MG Tablet PO PRN (16:21)
--- NOTE | 2018-06-24 18:26 | P.CON ---
History of Present Illness Service: Hospitalist service Consult date: 06/24/18 Reason for Consult: Diarrhea Primary Care Provider: No Primary Care Physician Chief Complaint: Diarrhea, Abdominal pain History of Present Illness: Ms. El is a 43 year old female with a history of depression, Hep C who was brought to the hospital under [place] act due to altered mental status, depression, suicidal attempt/ideation, ethanol and isopropyl alcohol use. She was subsequently admitted to the psychiatry unit. Hospitalist service was consulted on 06/24/2018 due to patient's multiple episodes of diarrhea. Patient reports significant abdominal pain and diarrhea more than 15-20 times today. No fever, chills. Denies any chest pain, shortness of breath. No changes in bladder habits. No blood in the stool. Past medical history: Hepatitis C, depression, alcoholism Surgical history: Gastric bypass surgery, breast reduction surgery. Social history: Patient smokes about a pack a day. She has been drinking heavy in the last few weeks. She also drank isopropyl alcohol Family history: Mother had depression as well. Review of Systems All other systems reviewed negative except as stated in HPI [facility] - History History Provided By: Patient - Medical History Medical History: Medical History (Last Reviewed 06/22/18 @ 14:17 by Elvin Cameron DO) Abuse of both oxycodone and heroin Alcoholic Depression Hepatitis C Molly - Surgical History Surgical History: Surgical History (Last Reviewed 06/22/18 @ 14:17 by Elvin Cameron DO) Gastric bypass status for obesity - Tobacco History Second Hand Smoke Exposure: Yes Tobacco Use In Past 30 Days: Yes Smoking Status: Current every day smoker Tobacco Type: Cigarettes - Alcohol History How Often Do You Have a Drink Containing Alcohol: 4 or more times a week - Substance Use History Substance History: Active Abuse - Substance Use Type Crack/Cocaine Type: HEROIN Status: Active Route Used: Inhalation, Intravenously Reason for Use: Get High Comment: PT HAS A SIGNIFICANT HX OF HEROIN, CRACK, COCAINE AND WEED ABUSE, ALONG WITH 10-12 BEERS/DAY - Travel History Recent Travel in the [place] Within the Last 8 Weeks: No Recent Travel Out of the Country Within the Last 8 Weeks: No - Immunization History Tetanus Immunization: Unsure Tetanus Immunization Year if Known: 2009 Hx Influenza Vaccine This Season: No Medications and Allergies Active Medications: Active Medications Acetaminophen (Tylenol) 650 mg PO Q4H PRN PRN Reason: Pain 1-5 or Temp >101F Last Admin: 06/23/18 21:51 Dose: 650 mg Al Hydrox/Mg Hydrox/Simethicone (Mag-Al Plus Susp Liq) 30 ml PO Q6H PRN PRN Reason: DYSPEPSIA Last Admin: 06/24/18 06:00 Dose: 30 ml Al Hydroxide/Mg Hydroxide (Milk Of Magnesia Liq) 30 ml PO Q12H PRN PRN Reason: Mild Constipation Flumazenil (Romazecon Inj) 0.2 mg IV.PUSH Q1M PRN PRN Reason: OVERSEDATION Folic Acid (Folic Acid) 1 mg PO DAILY [facility] Stop: 06/27/18 08:59 Last Admin: 06/24/18 08:58 Dose: 1 mg Gabapentin (Neurontin) 600 mg PO TID [facility] Last Admin: 06/24/18 17:42 Dose: 600 mg Hydroxyzine HCl (Atarax) 50 mg PO Q6H PRN PRN Reason: ANXIETY Last Admin: 06/23/18 15:13 Dose: 50 mg Lorazepam (Ativan) 1 mg PO Q4H PRN PRN Reason: for CIWA 8-10 Last Admin: 06/24/18 16:21 Dose: 1 mg Lorazepam (Ativan Inj) 2 mg IV.PUSH Q2H PRN PRN Reason: for CIWA 11-14 Lorazepam (Ativan Inj) 2 mg IV.PUSH Q1H PRN PRN Reason: for CIWA 15-20 Lorazepam (Ativan Inj) 2 mg IV.PUSH Q15M PRN PRN Reason: for CIWA > 20 Lorazepam (Ativan Inj) 1 mg IV.PUSH Q4H PRN PRN Reason: for CIWA 8-10 Lorazepam (Ativan) 2 mg PO Q2H PRN PRN Reason: for CIWA 11-14 Lorazepam (Ativan Inj) 2 mg IM Q6H PRN PRN Reason: SEIZURES Melatonin (Melatonin) 5 mg PO HS PRN PRN Reason: INSOMNIA Last Admin: 06/21/18 20:51 Dose: 5 mg Multivitamins/Minerals (Theragran-M) 1 tab PO DAILY [facility] Stop: 06/27/18 08:59 Last Admin: 06/24/18 08:58 Dose: 1 tab Nicotine (Habitrol 14 Mg Patch.24 Hr) 1 patch T-DERMAL DAILY PRN PRN Reason: Nicotine craving Patch Removal (Remove Old Patch) 1 each T-DERMAL DAILY [facility] Last Admin: 06/24/18 17:26 Dose: Not Given Quetiapine Fumarate (Seroquel) 100 mg PO [facility] Thiamine HCl (Vitamin B1) 100 mg PO DAILY [facility] Last Admin: 06/24/18 08:58 Dose: 100 mg Allergies Allergy/AdvReac Type Severity Reaction Status Date / Time No Known Allergies Allergy Unverified 06/20/18 01:28 Home Medications Medication Instructions Recorded Confirmed Type buprenorphine-naloxone [Suboxone] 8 mg SUBLINGUAL TID 04/12/18 06/20/18 History gabapentin [Neurontin] 300 mg PO BID 04/12/18 06/20/18 History lamotrigine [Lamictal] 15 mg PO DAILY 04/12/18 06/20/18 History Physical Exam Vital signs: Vital Signs 06/24/18 04:56 Temperature 97.9 F Pulse Rate 91 H Respiratory Rate 17 Blood Pressure 109/71 Pulse Oximetry 98 Intake & Output 06/23/18 06/24/18 06/24/18 18:59 06:59 18:59 Weight 70.3 kg Narrative: GENERAL: This is a well-nourished, well-developed patient, in no apparent distress. SKIN: No rashes, ecchymoses or lesions. Warm and dry. HEAD: Atraumatic. Normocephalic. No temporal or scalp tenderness. EYES: Pupils equal round and reactive. No injection or drainage. ENT: Nose without bleeding, purulent drainage or septal hematoma. Airway patent. NECK: Trachea midline. No lymphadenopathy. Supple, nontender, no meningeal signs. CARDIOVASCULAR: Regular rate and rhythm without murmurs, gallops, or rubs. No JVD. RESPIRATORY: Clear to auscultation. Breath sounds equal bilaterally. No wheezes , rales, or rhonchi. GASTROINTESTINAL: Abdomen soft, mildly tender to mid-epigastric area, nondistended. No guarding. MUSCULOSKELETAL: Extremities without clubbing, cyanosis, or edema. NEUROLOGICAL: Awake and alert. Cranial nerves II through XII intact. No focal neurological deficits. Normal speech. Assessment and Plan - Plan Ms. El is a 43-year-old female who was brought to the hospital under [place] act due to altered mental status, depression, suicidal ideation and heavy alcohol use. She admitted to drinking ethanol as well as isopropyl alcohol. Patient was originally admitted to the hospitalist service and was subsequently admitted to psychiatry unit. Hospitalist service was consulted for abdominal pain, diarrhea. Acute alcohol intoxication Isopropyl alcohol abuse Suicidal ideations Severe depression -Psychiatry is managing. Pt is on Seroquel 100mg QHS -Continue CIWA protocol, Multivitamin, Thiamine, folic acid Abdominal pain Diarrhea -Psychiatrist already ordered C. Diff PCR. Discussed with RN to get a sample to lab -Further management based on C. Diff PCR results. -Will obtain CBC, BMP in the AM. Acute kidney injury - resolved. - Creatinine 1.97, 1.7 before coming to psychiatry unit. - Improved to 0.82. Full code. Ambulation. Thank you for the consult. We will continue to follow this patient with you.
[2018-06-24] MEDS ORDERED: QUEtiapine 100 MG Tablet PO SCH (21:00)
--- NOTE | 2018-06-24 21:02 | MG ---
cc: Ulises Steen MD ELECTROENCEPHALOGRAM RECORD NUMBER: [id number] DESCRIPTION: Well-formed alpha activity of 8-9 Hz, 20-50 microvolts. Low amplitude beta in the frontal channels. Good anterior to posterior gradient. Attenuation slowing with transition into drowsy state, followed by stage I and stage II sleep with the appearance of spindle activity. Went back to wakeful state. Good driving with photic stimulation. Single-lead EKG showing sinus rhythm. No epileptic activity appreciated. INTERPRETATION: Normal awake/sleep electroencephalogram. Clinical correlation. MD MARY Shields/amanda , 08:46 PM , 08:49 PM
[2018-06-24] MEDS: Melatonin 5 MG Tablet PO PRN (22:28)
[2018-06-25 07:16] LABS: Baso % (Auto) 0.8 % (0.0-2.0); Eos # (Auto) 0.1 th/mm3 (0.0-0.4); Eos % (Auto) 2.8 % (0.0-4.0); Hematocrit 34.2 % (35.0-46.0); Hemoglobin 11.7 gm/dL (11.6-15.3); Lymph # (Auto) 1.8 th/mm3 (1.0-4.8); Lymph % (Auto) 38.5 % (9.0-44.0); Mean Corpuscular HGB Conc 34.2 % (32.0-36.0); Mean Corpuscular Volume 90.5 fL (80.0-100.0); Mean Platelet Volume 8.4 fL (7.0-11.0); Mono # (Auto) 0.6 th/mm3 (0.0-0.9); Mono % (Auto) 12.9 % (0.0-8.0); Neut # (Auto) 2.2 th/mm3 (1.8-7.7); Platelet Count 210 th/mm3 (150-450); Red Blood Count 3.78 mil/mm3 (4.00-5.30); Red Cell Distribution Width 16.1 % (11.6-17.2); White Blood Count 4.8 th/mm3 (4.0-11.0)
[2018-06-25 07:53] LABS: Anion Gap 8 meq/L (5-15); Blood Urea Nitrogen 10 mg/dL (7-18); Calcium 8.5 mg/dL (8.5-10.1); Carbon Dioxide 25.2 meq/L (21.0-32.0); Chloride 108 meq/L (98-107); Glomerular Filtration Rate Greater Than 89 mL/min (>89); Glucose,Random 81 mg/dL (74-106); Potassium 4.1 meq/L (3.5-5.1); Sodium 141 meq/L (136-145)
[2018-06-25] MEDS: Multivitamin/Minerals Therapeutic Tablet PO SCH (08:42)
[2018-06-25] MEDS: Gabapentin 300 MG Capsule PO SCH ×3 (08:42→17:44)
[2018-06-25] MEDS: Folic Acid 1 MG Tablet PO SCH (08:43)
--- NOTE | 2018-06-25 10:50 | P.PNPSY ---
Subjective Chief Complaint: SI Remarks: Patient seen and examined with nurse. Chart reviewed. Case discussed with nursing staff who reports patient is somewhat more social today. Case discussed in treatment team. On my examination today, the patient presents as somewhat sarcastic. She describes her mood as "cynical." She denies any active SI, noting "no more than normal." No HI. Some cluster B personality traits noted. No side effects from medications. Agreeable to adding Topamax and titrating Seroquel today. No new physical complaints. GI symptoms have subsided. Vital Signs Temp Pulse Resp BP Pulse Ox 06/25/18 07:15 98 F 83 16 104/59 L 100 Laboratory Results - last 24 hr 06/22/18 06/25/18 06/25/18 07:36 06:47 06:47 WBC 4.8 RBC 3.78 L Hgb 11.7 Hct 34.2 L MCV 90.5 MCH 31.0 MCHC 34.2 RDW 16.1 Plt Count 210 D MPV 8.4 Neut % (Auto) 45.0 Lymph % (Auto) 38.5 [place] % (Auto) 12.9 H Eos % (Auto) 2.8 Baso % (Auto) 0.8 Neut # (Auto) 2.2 Lymph # (Auto) 1.8 [place] # (Auto) 0.6 Eos # (Auto) 0.1 Baso # (Auto) 0.0 WBC Differential . Differential Comment Auto diff final Sodium 141 Potassium 4.1 Chloride 108 H Carbon Dioxide 25.2 Anion Gap 8 BUN 10 Creatinine 0.45 L Estimated GFR Greater than 89 Random Glucose 81 Calcium 8.5 Beta HCG, Quant Less than 1 Labs reviewed. EEG preliminary read as normal. No epileptic activity noted. Review of Systems All other systems reviewed negative except as stated in HPI Mental Status Examination Appearance: Appropriate Consciousness: Alert Orientation: x4 Motor Activity: Normal gait, Other (No motor abnormalities appreciated. No ictal activity noted. No signs of any withdrawal.) Speech: Unremarkable Language: Adequate Fund of Knowledge: Adequate Attention and Concentration: Adequate Memory: Unremarkable (Grossly intact on clinical exam) Mood: Oppositional, Anxious Affect: Other (Somewhat dysphoric and irritable) Thought Process & Associations: Intact Thought Content: Appropriate Hallucination Type: None Delusion Type: None Suicidal Ideation: No Suicidal Plan: No Suicidal Intention: No Homicidal Ideation: No Homicidal Plan: No Homicidal Intention: No Insight: Fair Judgment: Impulsive Assessment and Plan - Assessment (1) Bipolar disorder, current episode depressed, severe, without psychotic features Code(s): F31.4 - Bipolar disorder, current episode depressed, severe, without psychotic features Status: Acute (2) Alcohol abuse Code(s): F10.10 - Alcohol abuse, uncomplicated Status: Acute - Plan Plan: Titrate Seroquel to 150 mg at bedtime for mood stabilization. Add Topamax for headache. Continue other medications as ordered. Hospitalist input appreciated. Continue to monitor on the inpatient unit. Continue other care as ordered. Justification for Continued Inpatient Stay: Medication changes. Risk for decompensation in less restrictive environment. Discharge Planning: Pending psychiatric stabilization. Request Healthcare Surrogate/Guardian Advocate?: No
[2018-06-25] MEDS: LORazepam 1 MG Tablet PO PRN ×2 (11:31→16:23)
--- NOTE | 2018-06-25 15:42 | P.TTN ---
- Patient Problems Problems: 1. Discharge planning 2. Medication compliance 3. Knowledge deficit 4. Lack of coping skills - Progress Toward Goals Provider Present: Dr. Jose Palomo (Increased Gabapentin, medical complaints have been addressed.) Psychiatric Counselors Present: Paddy English Jr., [facility] (Discuss safe discharge plan with patient) Group Spec/RT/OT/BARRY Present: JHONNY Fernando (Pt. attends select groups regularly.) - Documentation Teaching Recipient: Patient
--- NOTE | 2018-06-25 17:16 | P.PNIM ---
Subjective Interval history: Follow-up abdominal pain, diarrhea, depression, suicidal ideation, and EtOH. Patient seen and examined complaint of abdominal pain and diarrhea x3 today, patient states that it is loose stated it is better with Imodium. Denies any nausea or vomiting, denies any fever or chills. Patient denies any headache, chest pain, or shortness of breath Physical Exam Vital signs: Vital Signs 06/25/18 07:15 Temperature 98 F Pulse Rate 83 Respiratory Rate 16 Blood Pressure 104/59 L Pulse Oximetry 100 Narrative: GENERAL: Well-developed, well-nourished, patient in no apparent distress SKIN: Warm and dry. HEAD: Atraumatic. Normocephalic. EYES: Pupils equal and round. No scleral icterus. No injection or drainage. ENT: No nasal bleeding or discharge. Mucous membranes pink and moist. NECK: Trachea midline. No JVD. CARDIOVASCULAR: Regular rate and rhythm. RESPIRATORY: No accessory muscle use. Clear to auscultation. Breath sounds equal bilaterally. GASTROINTESTINAL: Abdomen soft, non-tender, slight abdominal tenderness on palpation . Hepatic and splenic margins not palpable. MUSCULOSKELETAL: Extremities without clubbing, cyanosis, or edema. No obvious deformities. NEUROLOGICAL: Awake and alert. No obvious cranial nerve deficits. Motor grossly within normal limits. Five out of 5 muscle strength in the arms and legs. Normal speech. PSYCHIATRIC: Appropriate mood and affect; insight and judgment poor Results - Labs CBC & Chem 7: 06/25/18 06:47 06/25/18 06:47 Laboratory Results - last 24 hr 06/22/18 06/25/18 06/25/18 07:36 06:47 06:47 WBC 4.8 RBC 3.78 L Hgb 11.7 Hct 34.2 L MCV 90.5 MCH 31.0 MCHC 34.2 RDW 16.1 Plt Count 210 D MPV 8.4 Neut % (Auto) 45.0 Lymph % (Auto) 38.5 [place] % (Auto) 12.9 H Eos % (Auto) 2.8 Baso % (Auto) 0.8 Neut # (Auto) 2.2 Lymph # (Auto) 1.8 [place] # (Auto) 0.6 Eos # (Auto) 0.1 Baso # (Auto) 0.0 WBC Differential . Differential Comment Auto diff final Sodium 141 Potassium 4.1 Chloride 108 H Carbon Dioxide 25.2 Anion Gap 8 BUN 10 Creatinine 0.45 L Estimated GFR Greater than 89 Random Glucose 81 Calcium 8.5 Beta HCG, Quant Less than 1 Assessment and Plan - Plan Ms. El is a 43-year-old female who was brought to the hospital under [place] act due to altered mental status, depression, suicidal ideation and heavy alcohol use. She admitted to drinking ethanol as well as isopropyl alcohol. Patient was originally admitted to the hospitalist service and was subsequently admitted to psychiatry unit. Hospitalist service was consulted for abdominal pain, diarrhea. Acute alcohol intoxication Isopropyl alcohol abuse Suicidal ideations Severe depression -Psychiatry is managing. Pt is on Seroquel 100mg QHS -Continue CIWA protocol, Multivitamin, Thiamine, folic acid Abdominal pain Diarrhea x 3 today per patient report - ordered C. Diff PCR. Discussed with RN to get a sample to lab -Further management based on C. Diff PCR results. -Will obtain CBC, BMP in the AM. - add questran Acute kidney injury - resolved. - Creatinine 1.97, 1.7 before coming to psychiatry unit. - Improved to 0.82. Full code. Ambulation. Thank you for the consult. We will continue to follow this patient with you.
[2018-06-25] MEDS: QUEtiapine 100 MG Tablet PO SCH (21:28)
[2018-06-25] MEDS: Topiramate 25 MG Tablet PO SCH (21:28)
[2018-06-26] MEDS: Gabapentin 300 MG Capsule PO SCH ×3 (08:45→17:30)
[2018-06-26] MEDS: Multivitamin/Minerals Therapeutic Tablet PO SCH (08:45)
[2018-06-26] MEDS: Folic Acid 1 MG Tablet PO SCH (08:45)
[2018-06-26] MEDS: Topiramate 25 MG Tablet PO SCH ×2 (08:45→21:49)
[2018-06-26] MEDS: Acetaminophen 325 MG Tablet PO PRN (08:59)
--- NOTE | 2018-06-26 13:14 | P.PNPSY ---
Subjective Chief Complaint: SI Remarks: Patient seen and examined with nurse. Chart reviewed. Case discussed with nursing staff. CIWA scores have been minimal and patient has been seeking after the Ativan associated with the CIWA score per nursing report. Discontinue CIWA and associated Ativan. Patient noted to be somewhat entitled but otherwise presenting no real behavioral problem. On my examination today, patient presents as somewhat dramatic with ongoing cluster B personality traits. Presentation is somewhat manipulative (for example, when asked if she was feeling suicidal, patient replied "not yet"), and some degree of malingering for mcc is suspected. I have asked the counselor to try to see if patient's living situation on discharge can in any way be improved. Patient complains of some anxiety but reports that she feels this is "situational." Denies side effects from medications. Declines any medication adjustments today. Ongoing diarrhea but no new physical complaints besides some mild dizziness, no reported falls. Vital Signs Temp Pulse Resp BP Pulse Ox 06/26/18 06:03 98.1 F 81 18 95/58 L 99 06/25/18 20:00 98.2 F 93 H 16 117/78 99 Intake and Output 06/26/18 06/26/18 06/26/18 06:59 14:59 22:59 Other: Date of Last Bowel Movement 06/26/18 Laboratory Results - last 24 hr 06/26/18 11:40 Stl C.difficile DNA Amp Positive H St C. diff Tox Epid 027 Positive H Labs reviewed. Positive C. difficile PCR noted. Isolation precautions initiated and patient will be transferred to medical psychiatric unit. Nurse will notify hospitalist of laboratory finding and obtain further orders for management of this issue. Review of Systems All other systems reviewed negative except as stated in HPI Mental Status Examination Appearance: Appropriate Consciousness: Alert Orientation: Person, Place (At least) Motor Activity: Normal gait, Other (No signs of withdrawal noted. No motoric abnormalities noted. No ictal activity noted.) Speech: Unremarkable Language: Adequate Fund of Knowledge: Adequate Attention and Concentration: Adequate Memory: Unremarkable (Grossly intact on clinical exam) Mood: Anxious Affect: Blunt Thought Process & Associations: Intact Thought Content: Appropriate Hallucination Type: None Delusion Type: None Suicidal Ideation: No Homicidal Ideation: No Insight: Fair Judgment: Impulsive Assessment and Plan - Assessment (1) Adjustment disorder with mixed disturbance of emotions and conduct Code(s): F43.25 - Adjustment disorder with mixed disturbance of emotions and conduct Status: Acute (2) Alcohol abuse Code(s): F10.10 - Alcohol abuse, uncomplicated Status: Acute - Plan Plan: With the benefit of further observation, adjustment disorder is suspected to be more likely primary diagnosis instead of mood episode in the setting of bipolar illness. This adjustment disorder likely overlies a cluster B personality style , possibly with a component of malingering for mcc. I will continue the patient's current psychotropic medications as ordered. I will check a set of orthostatic vital signs given complaints of dizziness. Patient to be transferred to medical psychiatric unit for further management of possible C. difficile associated diarrhea. Continue other medications and care as ordered. Justification for Continued Inpatient Stay: Complicating condition. Risk for decompensation in less restrictive environment. Discharge Planning: Pending stabilization and medical clearance. Request Healthcare Surrogate/Guardian Advocate?: No
--- NOTE | 2018-06-26 17:12 | P.PNIM ---
Subjective Interval history: Follow-up abdominal pain, diarrhea, c-Diff, depression, suicidal ideation, and EtOH. Patient seen and examined sitting on her bed, eating dinner. Patient denies any nausea or cvomiting. Patient stated stool is better since yesterday that her nurse have given her something for anxiety. Stated she just went 2 x today. Patient denies any pain, abdominal pain, nausea or vomiting. Patient denies any fever or chills, denies chest pain or SOB . Physical Exam Vital signs: Vital Signs 06/25/18 20:00 06/26/18 06:03 Temperature 98.2 F 98.1 F Pulse Rate 93 H 81 Respiratory Rate 18 Blood Pressure 117/78 95/58 L Pulse Oximetry 99 99 Intake & Output 06/25/18 06/26/18 06/26/18 18:59 06:59 18:59 Other: Date of Last Bowel Movement 06/26/18 Narrative: GENERAL: Well-developed, well-nourished, patient in no apparent distress SKIN: Warm and dry. HEAD: Atraumatic. Normocephalic. EYES: Pupils equal and round. No scleral icterus. No injection or drainage. ENT: No nasal bleeding or discharge. Mucous membranes pink and moist. NECK: Trachea midline. No JVD. CARDIOVASCULAR: Regular rate and rhythm. RESPIRATORY: No accessory muscle use. Clear to auscultation. Breath sounds equal bilaterally. GASTROINTESTINAL: Abdomen soft, non-tender, slight abdominal tenderness on palpation . Hepatic and splenic margins not palpable. MUSCULOSKELETAL: Extremities without clubbing, cyanosis, or edema. No obvious deformities. NEUROLOGICAL: Awake and alert. No obvious cranial nerve deficits. Motor grossly within normal limits. Five out of 5 muscle strength in the arms and legs. Normal speech. PSYCHIATRIC: Appropriate mood and affect; insight and judgment poor Results - Labs CBC & Chem 7: 06/25/18 06:47 06/25/18 06:47 Laboratory Results - last 24 hr 06/26/18 11:40 Stl C.difficile DNA Amp Positive H St C. diff Tox Epid 027 Positive H Assessment and Plan - Assessment (1) Clostridium difficile diarrhea Code(s): A04.72 - Enterocolitis due to Clostridium difficile, not specified as recurrent Status: Acute (2) Suicidal ideation Code(s): R45.851 - Suicidal ideations Status: Acute (3) Drug-induced psychotic disorder Code(s): F19.959 - Other psychoactive substance use, unspecified with psychoactive substance-induced psychotic disorder, unspecified Status: Acute (4) Depression Code(s): F32.9 - Major depressive disorder, single episode, unspecified Status : Acute (5) Bipolar disorder, current episode depressed, severe, without psychotic features Code(s): F31.4 - Bipolar disorder, current episode depressed, severe, without psychotic features Status: Acute - Plan Ms. El is a 43-year-old female who was brought to the hospital under [place] act due to altered mental status, depression, suicidal ideation and heavy alcohol use. She admitted to drinking ethanol as well as isopropyl alcohol. Patient was originally admitted to the hospitalist service and was subsequently admitted to psychiatry unit. Hospitalist service was consulted for abdominal pain, diarrhea. Abdominal pain/Diarrhea/C-Diff Diarrhea x 3 today per patient report - C. Diff PCR, positive for DNA and Tox Epid 027, AG/Toxin pending -Further management based on C. Diff PCR results. -Will obtain CBC, BMP in the AM. - add questran -started on Vanco 125 mg po q6h x 14 days Acute kidney injury - resolved. - Creatinine 1.97, improved to 0.45 on 06/25 - avoid nephrotoxins -monitor renal function Acute alcohol intoxication Isopropyl alcohol abuse Suicidal ideations Severe depression -Psychiatry is managing. Pt is on Seroquel 100mg QHS -Continue CIWA protocol, Multivitamin, Thiamine, folic acid Full code. Ambulation. Thank you for the consult. Patient may be discharged on PO Vancomycin when cleared with Psych. youth care worker to assist with filling the prescription. Patient noted she do not have an insurance. Code Status: full code Discussed Condition With: patient and nurse Discharge Planning: youth care worker to assist with filling the prescription for Vancomycin PO x 14 days. Patient noted she do not have an insurance.
[2018-06-26] MEDS: QUEtiapine 100 MG Tablet PO SCH (21:49)
--- NOTE | 2018-06-27 08:21 | P.PNIM ---
Subjective Interval history: Follow-up abdominal pain, diarrhea, c-Diff, depression, suicidal ideation, bipolar disorder and EtOH. Patient seen and examined, sitting on her bed eating breakfast without any vomiting. Patient stated he had some nausea but no vomiting. Patient stated her bowel movement is better and getting more she formed since the start of the Questran. Patient was upset about her "infection ". Stated we give it to her, and now we put her on isolation. Discussed with the patient that she probably have a before but she was not tested based on the lab results, but patient is in denial. Patient stated she was homeless when she interacts with homeless people, and she had no place to live going to be discharged. Patient denies any headache or dizziness, denies any pain, chest pain, or shortness of breath. Patient denies any fever or chills. Patient's mood was hyperactive, and upset in the beginning, and she comes down at the end of the conversation. Physical Exam Vital signs: Intake & Output 06/26/18 06/27/18 06/27/18 18:59 06:59 18:59 Intake Total 240 / 240 Balance 240 / 240 Intake: Oral 240 / 240 Other: Date of Last Bowel Movement 06/26/18 Narrative: GENERAL: Well-developed, well-nourished, patient in no apparent distress SKIN: Warm and dry. HEAD: Atraumatic. Normocephalic. EYES: Pupils equal and round. No scleral icterus. No injection or drainage. ENT: No nasal bleeding or discharge. Mucous membranes pink and moist. NECK: Trachea midline. No JVD. CARDIOVASCULAR: Regular rate and rhythm. RESPIRATORY: No accessory muscle use. Clear to auscultation. Breath sounds equal bilaterally. GASTROINTESTINAL: Abdomen soft, slight abdominal tenderness on palpation, Hepatic and splenic margins not palpable. MUSCULOSKELETAL: Extremities without clubbing, cyanosis, or edema. No obvious deformities. NEUROLOGICAL: Awake and alert. No obvious cranial nerve deficits. Motor grossly within normal limits. Five out of 5 muscle strength in the arms and legs. Normal speech. PSYCHIATRIC: anxious mood and affect; insight and judgment poor Results - Labs CBC & Chem 7: 06/25/18 06:47 06/25/18 06:47 Laboratory Results - last 24 hr 06/26/18 11:40 Stl C.difficile DNA Amp Positive H St C. diff Tox Epid 027 Positive H Assessment and Plan - Assessment (1) Clostridium difficile diarrhea Code(s): A04.72 - Enterocolitis due to Clostridium difficile, not specified as recurrent Status: Acute (2) Suicidal ideation Code(s): R45.851 - Suicidal ideations Status: Acute (3) Drug-induced psychotic disorder Code(s): F19.959 - Other psychoactive substance use, unspecified with psychoactive substance-induced psychotic disorder, unspecified Status: Acute (4) Depression Code(s): F32.9 - Major depressive disorder, single episode, unspecified Status : Acute (5) Bipolar disorder, current episode depressed, severe, without psychotic features Code(s): F31.4 - Bipolar disorder, current episode depressed, severe, without psychotic features Status: Acute - Plan Ms. El is a 43-year-old female who was brought to the hospital under [place] act due to altered mental status, depression, suicidal ideation and heavy alcohol use. She admitted to drinking ethanol as well as isopropyl alcohol. Patient was originally admitted to the hospitalist service and was subsequently admitted to psychiatry unit. Hospitalist service was consulted for abdominal pain, diarrhea. Abdominal pain/Diarrhea/C-Diff Associated with nausea, no vomiting Diarrhea improving- none today or formed last night - C. Diff PCR, positive for DNA and Tox Epid 027, AG posiotive/Toxin negative - add questran -continue on Vanco 125 mg po q6h x 14 days -monitor CBC, BMP and mag level Acute kidney injury - resolved. - Creatinine 1.97, improved to 0.45 on 06/25 - avoid nephrotoxins -monitor renal function Acute alcohol intoxication Isopropyl alcohol abuse/Heavy Alcohol Use Suicidal ideations Severe depression -Psychiatry is managing. Pt is on Seroquel 100mg QHS -Continue CIWA protocol, Multivitamin, Thiamine, folic acid DV Proph: Ambulation. Thank you for the consult. Patient may be discharged on PO Vancomycin when cleared with Psych. television maintenance worker to assist with filling the prescription. Patient noted she do not have an insurance. Code Status: Full code Discussed Condition With: Patient, nurse Discharge Planning: television maintenance worker to assist with filling the prescription for Vancomycin PO x 14 days. Patient noted she do not have an insurance.
[2018-06-27] MEDS: Topiramate 25 MG Tablet PO SCH ×2 (08:43→20:54)
[2018-06-27] MEDS: Gabapentin 300 MG Capsule PO SCH ×3 (08:43→17:53)
--- NOTE | 2018-06-27 09:27 | P.PNPSY ---
Subjective Chief Complaint: SI Remarks: Patient seen and examined with nurse. Chart reviewed. Case discussed with nursing staff. No behavioral issues noted. On my examination today, the patient complains of ongoing depression and anxiety. Cluster B personality traits persist although somewhat less prominent today. Denies side effects from medications. No physical complaints. Intake and Output 06/27/18 06/27/18 06/27/18 06:59 14:59 22:59 Intake Total 480 / 480 Balance 480 / 480 Intake: Oral 480 / 480 Other: Date of Last Bowel Movement 06/27/18 Laboratory Results - last 24 hr 06/26/18 11:40 Stool C.difficile Ag Positive H Stool C.difficile Toxin Negative Labs reviewed. Review of Systems All other systems reviewed negative except as stated in HPI Mental Status Examination Appearance: Appropriate Consciousness: Alert Orientation: Person, Place (At least) Motor Activity: Other (No motoric abnormalities noted) Speech: Unremarkable Language: Adequate Fund of Knowledge: Adequate Attention and Concentration: Adequate Memory: Unremarkable (Grossly intact on clinical exam) Mood: Other (Dysphoric) Affect: Blunt Thought Process & Associations: Intact Thought Content: Appropriate Hallucination Type: None Delusion Type: None Suicidal Ideation: No Homicidal Ideation: No Insight: Fair Judgment: Impulsive Assessment and Plan - Assessment (1) Adjustment disorder with mixed disturbance of emotions and conduct Code(s): F43.25 - Adjustment disorder with mixed disturbance of emotions and conduct Status: Acute (2) Alcohol abuse Code(s): F10.10 - Alcohol abuse, uncomplicated Status: Acute - Plan Plan: Titrate Seroquel to 200 mg at bedtime for mood stabilization. Continue to monitor on the inpatient unit. Continue other medications and care as ordered. Justification for Continued Inpatient Stay: Med changes. Risk for decompensation in less restrictive environment. Complicating condition. Discharge Planning: Pending stabilization. Request Healthcare Surrogate/Guardian Advocate?: No
[2018-06-27] MEDS ORDERED: QUEtiapine 100 MG Tablet PO SCH (21:00)
--- NOTE | 2018-06-28 07:56 | P.PNIM ---
Subjective Interval history: Follow-up abdominal pain, diarrhea, c-Diff, depression, suicidal ideation, bipolar disorder and EtOH. Patient seen and examined, sitting in the bed, eating breakfast. Pt still c/o of nausea, no vomiting, reported loose stool last night, stated no stool today yet. Denies any vomiting. Denies any pain, chest pain, SOB, fever or chills Physical Exam Vital signs: Vital Signs 06/27/18 19:21 06/28/18 00:00 06/28/18 04:00 Temperature 97.4 F L 98.4 F 98.4 F Pulse Rate 79 64 69 Respiratory Rate 16 16 16 Blood Pressure 105/72 95/59 L 95/59 L Pulse Oximetry 100 Intake & Output 06/27/18 06/28/18 06/28/18 18:59 06:59 18:59 Intake Total 720 / 720 Balance 720 / 720 Intake: Oral 720 / 720 Other: Date of Last Bowel Movement 06/27/18 Narrative: GENERAL: Well-developed, well-nourished, patient in no apparent distress SKIN: Warm and dry. HEAD: Atraumatic. Normocephalic. EYES: Pupils equal and round. No scleral icterus. No injection or drainage. ENT: No nasal bleeding or discharge. Mucous membranes pink and moist. NECK: Trachea midline. No JVD. CARDIOVASCULAR: Regular rate and rhythm. RESPIRATORY: No accessory muscle use. Clear to auscultation. Breath sounds equal bilaterally. GASTROINTESTINAL: Abdomen soft, slight abdominal tenderness on palpation, Hepatic and splenic margins not palpable. MUSCULOSKELETAL: Extremities without clubbing, cyanosis, or edema. No obvious deformities. NEUROLOGICAL: Awake and alert. No obvious cranial nerve deficits. Motor grossly within normal limits. Five out of 5 muscle strength in the arms and legs. Normal speech. PSYCHIATRIC: anxious mood and affect; insight and judgment poor Results - Labs CBC & Chem 7: 06/28/18 07:22 06/28/18 07:22 Laboratory Results - last 24 hr 06/26/18 11:40 Stool C.difficile Ag Positive H Stool C.difficile Toxin Negative Assessment and Plan - Assessment (1) Clostridium difficile diarrhea Code(s): A04.72 - Enterocolitis due to Clostridium difficile, not specified as recurrent Status: Acute (2) Suicidal ideation Code(s): R45.851 - Suicidal ideations Status: Acute (3) Drug-induced psychotic disorder Code(s): F19.959 - Other psychoactive substance use, unspecified with psychoactive substance-induced psychotic disorder, unspecified Status: Acute (4) Depression Code(s): F32.9 - Major depressive disorder, single episode, unspecified Status : Acute (5) Bipolar disorder, current episode depressed, severe, without psychotic features Code(s): F31.4 - Bipolar disorder, current episode depressed, severe, without psychotic features Status: Acute - Plan Ms. El is a 43-year-old female who was brought to the hospital under [place] act due to altered mental status, depression, suicidal ideation and heavy alcohol use. She admitted to drinking ethanol as well as isopropyl alcohol. Patient was originally admitted to the hospitalist service and was subsequently admitted to psychiatry unit. Hospitalist service was consulted for abdominal pain, diarrhea. Abdominal pain/Diarrhea/C-Diff Associated with nausea, no vomiting Diarrhea improving- none today or formed last night - C. Diff PCR, positive for DNA and Tox Epid 027, AG posiotive/Toxin negative - add questran -continue on Vanco 125 mg po q6h x 14 days -monitor CBC, BMP and mag level Acute kidney injury - resolved. - Creatinine 1.97, improved to 0.45 on 06/25 - avoid nephrotoxins -monitor renal function Acute alcohol intoxication Isopropyl alcohol abuse/Heavy Alcohol Use Suicidal ideations Severe depression -Psychiatry is managing. Pt is on Seroquel 100mg QHS -Continue CIWA protocol, Multivitamin, Thiamine, folic acid DV Proph: Ambulation. Thank you for the consult. Patient may be discharged on PO Vancomycin when cleared with Psych. rigging worker to assist with filling the prescription. Patient noted she do not have an insurance. Discharge Planning: rigging worker to assist with filling the prescription for Vancomycin PO x 14 days. Patient noted she do not have an insurance.
[2018-06-28 08:10] LABS: Hematocrit 37.1 % (35.0-46.0); Hemoglobin 12.1 gm/dL (11.6-15.3); Mean Corpuscular HGB Conc 32.6 % (32.0-36.0); Mean Corpuscular Hemoglobin 30.3 pg (27.0-34.0); Mean Corpuscular Volume 92.9 fL (80.0-100.0); Mean Platelet Volume 8.6 fL (7.0-11.0); Platelet Count 272 th/mm3 (150-450); Red Cell Distribution Width 16.5 % (11.6-17.2); White Blood Count 4.3 th/mm3 (4.0-11.0)
[2018-06-28 08:38] LABS: Anion Gap 6 meq/L (5-15); Blood Urea Nitrogen 13 mg/dL (7-18); Calcium 8.6 mg/dL (8.5-10.1); Carbon Dioxide 26.5 meq/L (21.0-32.0); Chloride 109 meq/L (98-107); Glomerular Filtration Rate Greater Than 89 mL/min (>89); Glucose,Random 80 mg/dL (74-106); Magnesium 2.3 mg/dL (1.5-2.5); Potassium 4.2 meq/L (3.5-5.1); Sodium 141 meq/L (136-145)
[2018-06-28] MEDS: Gabapentin 300 MG Capsule PO SCH ×3 (09:00→17:34)
[2018-06-28] MEDS: Topiramate 25 MG Tablet PO SCH ×2 (09:00→21:24)
--- NOTE | 2018-06-28 12:01 | P.PNPSY ---
Subjective Chief Complaint: SI Remarks: Patient seen and examined. Chart reviewed. Case discussed with staff. Case discussed with treatment team. Counselor notes that patient could go to stay at sober living facility once C. difficile has cleared up. Counselor also offered woman's detention in [place], but patient reports that she cannot leave the [facility] due to active legal issues. For the period in which the patient is still being treated for C. difficile, we presently have no safe discharge plan. On my evaluation today, the patient presents as somewhat dysphoric and irritable. No SI or HI. No psychotic material. The patient does complain of seeing some flashing lights in the lower half of her visual field, and I will ask the hospitalist to follow up on this. Ongoing cluster B personality traits. No side effects from medications. No other physical complaints. Patient does say she might be able to stay in a motel, although she does not have funds for this. Vital Signs Temp Pulse Resp BP Pulse Ox 06/28/18 04:00 98.4 F 69 16 95/59 L 06/28/18 00:00 98.4 F 64 16 95/59 L 06/27/18 19:21 97.4 F L 79 16 105/72 100 Intake and Output 06/27/18 06/28/18 06/28/18 22:59 06:59 14:59 Intake Total 240 / 240 480 / 480 Balance 240 / 240 480 / 480 Intake: Oral 240 / 240 480 / 480 Laboratory Results - last 24 hr 06/28/18 06/28/18 07:22 07:22 WBC 4.3 RBC 4.00 Hgb 12.1 Hct 37.1 MCV 92.9 MCH 30.3 MCHC 32.6 RDW 16.5 Plt Count 272 MPV 8.6 Sodium 141 Potassium 4.2 Chloride 109 H Carbon Dioxide 26.5 Anion Gap 6 BUN 13 Creatinine 0.57 Estimated GFR Greater than 89 Random Glucose 80 Calcium 8.6 Magnesium 2.3 Labs reviewed. Review of Systems All other systems reviewed negative except as stated in HPI Mental Status Examination Appearance: Appropriate Consciousness: Alert Orientation: Person, Place (At least) Motor Activity: Other (No abnormal motor movements noted) Speech: Unremarkable Language: Adequate Fund of Knowledge: Adequate Attention and Concentration: Adequate Memory: Unremarkable (Grossly intact on clinical exam) Mood: Other (Dysphoric, mild) Affect: Blunt Thought Process & Associations: Intact Thought Content: Appropriate Hallucination Type: Visual (Flashes of light) Delusion Type: None Suicidal Ideation: No Homicidal Ideation: No Insight: Fair Judgment: Impulsive Assessment and Plan - Assessment (1) Adjustment disorder with mixed disturbance of emotions and conduct Code(s): F43.25 - Adjustment disorder with mixed disturbance of emotions and conduct Status: Acute (2) Alcohol abuse Code(s): F10.10 - Alcohol abuse, uncomplicated Status: Acute - Plan Plan: Titrate Seroquel to 50 mg in the morning and 200 mg at bedtime for mood stabilization. Continue other psychotropics as ordered. Hospitalist to follow up on patient's complaints of seeing flashing lights, which I do not suspect is related, e.g. to a psychotic process. Continue to monitor on the medical psychiatric unit. Continue other medications and care as ordered. Justification for Continued Inpatient Stay: Medication changes. Risk for decompensation in less restrictive environment. Complicating condition. Discharge Planning: Counselor to explore alternative discharge plans. Request Healthcare Surrogate/Guardian Advocate?: No
[2018-06-28] MEDS ORDERED: QUEtiapine 100 MG Tablet PO SCH (21:00)
[2018-06-29] MEDS: QUEtiapine 25 MG Tablet PO SCH (09:15)
[2018-06-29] MEDS: Gabapentin 300 MG Capsule PO SCH ×3 (09:15→17:00)
[2018-06-29] MEDS: Topiramate 25 MG Tablet PO SCH ×2 (09:15→21:39)
--- NOTE | 2018-06-29 13:51 | P.PNIM ---
Subjective Interval history: Follow-up abdominal pain, diarrhea, c-Diff, depression, suicidal ideation, bipolar disorder and EtOH. Patient seen and examined with the nurse, patient sitting in the bed, stated no more diarrhea today and yesterday, denies any nausea or vomiting. patient complaints of vaginal itchiness, without foul discharge. Patient denies any pain, chest pain or SOB. Denies any fever or chills Physical Exam Vital signs: Vital Signs 06/28/18 16:12 06/29/18 05:43 06/29/18 09:00 Temperature 97.2 F L 97.7 F Pulse Rate 90 72 97 H Respiratory Rate 16 16 Blood Pressure 101/68 94/54 L 103/72 Pulse Oximetry 98 99 Intake & Output 06/28/18 06/29/18 06/29/18 18:59 06:59 18:59 Intake Total 2560 / 2560 460 / 460 1920 / 1920 Balance 2560 / 2560 460 / 460 1920 / 1920 Intake: Oral 2560 / 2560 360 / 360 1920 / 1920 Oral Supplement 100 / 100 Other: # Voids 2 Date of Last Bowel Movement 06/28/18 Narrative: GENERAL: Well-developed, well-nourished, patient in no apparent distress SKIN: Warm and dry. HEAD: Atraumatic. Normocephalic. EYES: Pupils equal and round. No scleral icterus. No injection or drainage. ENT: No nasal bleeding or discharge. Mucous membranes pink and moist. NECK: Trachea midline. No JVD. CARDIOVASCULAR: Regular rate and rhythm. RESPIRATORY: No accessory muscle use. Clear to auscultation. Breath sounds equal bilaterally. GASTROINTESTINAL: Abdomen soft, non-tender, Hepatic and splenic margins not palpable. MUSCULOSKELETAL: Extremities without clubbing, cyanosis, or edema. No obvious deformities. NEUROLOGICAL: Awake and alert. No obvious cranial nerve deficits. Motor grossly within normal limits. Five out of 5 muscle strength in the arms and legs. Normal speech. PSYCHIATRIC: anxious mood and affect; insight and judgment poor Results - Labs CBC & Chem 7: 06/28/18 07:22 06/28/18 07:22 Assessment and Plan - Assessment (1) Clostridium difficile diarrhea Code(s): A04.72 - Enterocolitis due to Clostridium difficile, not specified as recurrent Status: Acute (2) Suicidal ideation Code(s): R45.851 - Suicidal ideations Status: Acute (3) Drug-induced psychotic disorder Code(s): F19.959 - Other psychoactive substance use, unspecified with psychoactive substance-induced psychotic disorder, unspecified Status: Acute (4) Depression Code(s): F32.9 - Major depressive disorder, single episode, unspecified Status : Acute (5) Bipolar disorder, current episode depressed, severe, without psychotic features Code(s): F31.4 - Bipolar disorder, current episode depressed, severe, without psychotic features Status: Acute - Plan Ms. El is a 43-year-old female who was brought to the hospital under [place] act due to altered mental status, depression, suicidal ideation and heavy alcohol use. She admitted to drinking ethanol as well as isopropyl alcohol. Patient was originally admitted to the hospitalist service and was subsequently admitted to psychiatry unit. Hospitalist service was consulted for abdominal pain, diarrhea. Abdominal pain/Diarrhea/C-Diff Associated with nausea, no vomiting Diarrhea improving- none today or formed last night - C. Diff PCR, positive for DNA and Tox Epid 027, AG posiotive/Toxin negative - add questran -continue on Vanco 125 mg po q6h x 14 days -monitor CBC, BMP and mag level Acute kidney injury - resolved. - Creatinine 1.97, improved to 0.45 on 06/25 - avoid nephrotoxins -monitor renal function Acute alcohol intoxication Isopropyl alcohol abuse/Heavy Alcohol Use Suicidal ideations Severe depression -Psychiatry is managing. Pt is on Seroquel 100mg QHS -Continue CIWA protocol, Multivitamin, Thiamine, folic acid Vaginal Itchiness add nystatin cream monitor resp[once DV Proph: Ambulation. Thank you for the consult. Patient may be discharged on PO Vancomycin when cleared with Psych. spring salvage worker to assist with filling the prescription. Patient noted she do not have an insurance. Patient medically stable, will sign off. Medicine team will be available as needed. Thank you for your consultation. Code Status: full code Discussed Condition With: patient and nurse Discharge Planning: spring salvage worker to assist with filling the prescription for Vancomycin PO x 14 days. Patient noted she do not have an insurance.
--- NOTE | 2018-06-29 14:07 | P.PNPSY ---
Subjective Chief Complaint: SI Remarks: The patient was seen today for psychiatric reevaluation. She is a little bit irritable, but finally cooperative. The patient reports that she continues to feel depressed, thinking about how miserable is her life. She has passive suicidal thoughts, no intention or plans. She denies homicidal ideation, denies visual and auditory hallucinations. Has been compliant medications, no significant side effects. Mental Status Examination Appearance: Appropriate Consciousness: Alert Orientation: Person, Place (At least) Motor Activity: Other (No abnormal motor movements noted) Speech: Unremarkable Language: Adequate Fund of Knowledge: Adequate Attention and Concentration: Adequate Memory: Unremarkable (Grossly intact on clinical exam) Mood: Other (Dysphoric, mild) Affect: Blunt Thought Process & Associations: Intact Thought Content: Appropriate Hallucination Type: Visual (Flashes of light) Delusion Type: None Suicidal Ideation: No Suicidal Plan: No Suicidal Intention: No Homicidal Ideation: No Homicidal Plan: No Homicidal Intention: No Insight: Fair Judgment: Impulsive Assessment and Plan - Assessment (1) Adjustment disorder with mixed disturbance of emotions and conduct Code(s): F43.25 - Adjustment disorder with mixed disturbance of emotions and conduct Status: Acute (2) Alcohol abuse Code(s): F10.10 - Alcohol abuse, uncomplicated Status: Acute - Plan Plan: Patient continues to present irritability, some symptoms of depression. Ambivalent suicidality. Continue current psychotropic regimen. Justification for Continued Inpatient Stay: Patient has an elevated risk of danger to self Request Healthcare Surrogate/Guardian Advocate?: No
[2018-06-30] MEDS: Gabapentin 300 MG Capsule PO SCH ×3 (08:22→17:44)
[2018-06-30] MEDS: QUEtiapine 25 MG Tablet PO SCH (08:22)
[2018-06-30] MEDS: Topiramate 25 MG Tablet PO SCH ×2 (08:22→20:32)
--- NOTE | 2018-06-30 12:51 | P.PNPSY ---
Subjective Chief Complaint: SI Remarks: Pt seen and discussed with staff. Chart reviewed. Pt continues to c/o of suicidal ideation and depression. She has been compliant with medications and care. No agitation or aggression Mental Status Examination Appearance: Appropriate Consciousness: Alert Orientation: Person, Place (At least) Motor Activity: Other (No abnormal motor movements noted) Speech: Unremarkable Language: Adequate Fund of Knowledge: Adequate Attention and Concentration: Adequate Memory: Unremarkable (Grossly intact on clinical exam) Mood: Sad Affect: Blunt Thought Process & Associations: Intact Thought Content: Appropriate Hallucination Type: None Delusion Type: None Suicidal Ideation: No Suicidal Plan: No Suicidal Intention: No Homicidal Ideation: No Homicidal Plan: No Homicidal Intention: No Insight: Fair Judgment: Impulsive Assessment and Plan - Assessment (1) Adjustment disorder with mixed disturbance of emotions and conduct Code(s): F43.25 - Adjustment disorder with mixed disturbance of emotions and conduct Status: Acute (2) Alcohol abuse Code(s): F10.10 - Alcohol abuse, uncomplicated Status: Acute - Plan Plan: Continue current treatment plan Justification for Continued Inpatient Stay: risk of decompensation Request Healthcare Surrogate/Guardian Advocate?: No
[2018-06-30] MEDS: Melatonin 5 MG Tablet PO PRN (20:32)
[2018-07-01] MEDS: Gabapentin 300 MG Capsule PO SCH ×3 (09:32→18:15)
[2018-07-01] MEDS: QUEtiapine 25 MG Tablet PO SCH (09:32)
[2018-07-01] MEDS: Topiramate 25 MG Tablet PO SCH ×2 (09:32→20:36)
--- NOTE | 2018-07-01 15:31 | P.PNPSY ---
Subjective Chief Complaint: SI Remarks: Patient seen and examined with nurse. Chart reviewed. Case discussed with nursing staff. No behavioral issues noted. Case discussed with counselor who continues to work on disposition options. On my examination today, the patient notes some ongoing mood lability. Her affect is more reactive and she seems less dysphoric. She denies any SI or HI. No psychotic material. Denies side effects from medications. No acute physical complaints. Vital Signs Temp Pulse Resp BP Pulse Ox 07/01/18 06:00 97.3 F L 64 16 97/56 L 96 06/30/18 18:00 98.1 F 79 16 118/73 98 Intake and Output 07/01/18 07/01/18 07/01/18 06:59 14:59 22:59 Intake Total 800 / 800 1440 / 1440 Balance 800 / 800 1440 / 1440 Intake: Oral 800 / 800 1440 / 1440 Other: # Voids 1 Date of Last Bowel Movement 07/01/18 Labs reviewed. No new labs. Review of Systems All other systems reviewed negative except as stated in HPI Mental Status Examination Appearance: Appropriate Consciousness: Alert Orientation: Person, Place (At least) Motor Activity: Other (No motor abnormalities noted) Speech: Unremarkable Language: Adequate Fund of Knowledge: Adequate Attention and Concentration: Adequate Memory: Unremarkable (Grossly intact on clinical exam) Mood: Other (Somewhat dysphoric) Affect: Appropriate (More full and reactive) Thought Process & Associations: Intact Thought Content: Appropriate Hallucination Type: None Delusion Type: None Suicidal Ideation: No Suicidal Plan: No Suicidal Intention: No Homicidal Ideation: No Homicidal Plan: No Homicidal Intention: No Mental Status Exam Remarks: Insight and judgment are fair Assessment and Plan - Assessment (1) Adjustment disorder with mixed disturbance of emotions and conduct Code(s): F43.25 - Adjustment disorder with mixed disturbance of emotions and conduct Status: Acute (2) Alcohol abuse Code(s): F10.10 - Alcohol abuse, uncomplicated Status: Acute - Plan Plan: Titrate Seroquel to 100 mg in the morning and 200 mg at bedtime for mood stabilization. Continue to monitor on the medical psychiatric unit. Continue other medications and care as ordered. Justification for Continued Inpatient Stay: Medication changes. Risk for decompensation in less restrictive environment. Discharge Planning: Counselor is working on discharge plan. Request Healthcare Surrogate/Guardian Advocate?: No
[2018-07-01] MEDS: Melatonin 5 MG Tablet PO PRN (20:36)
[2018-07-02] MEDS: QUEtiapine 100 MG Tablet PO SCH (10:22)
[2018-07-02] MEDS: Topiramate 25 MG Tablet PO SCH ×2 (10:22→20:05)
[2018-07-02] MEDS: Gabapentin 300 MG Capsule PO SCH ×3 (10:23→18:47)
--- NOTE | 2018-07-02 14:31 | P.PNPSY ---
Subjective Chief Complaint: SI Remarks: Patient seen and examined with nurse. Chart reviewed. Case discussed with nursing staff. No behavioral issues noted. Patient noted to be somewhat depressed still but denying suicidal ideation. Case discussed in treatment team. Counselor informs me that patient is declining placement outside of the [facility] noting that her support system is all within [facility]. Counselor is exploring whether family member might be able to take the patient in. Otherwise, no safe discharge plan at present. On my examination today, the patient is somewhat dysphoric and fretful. She is anxious that she will be discharged homeless before her treatment for C. difficile has been completed. I have reassured her that we will retain her on the unit to complete the course of treatment unless some safe discharge plan can be arranged. No SI or HI voiced. No side effects from medications. No acute physical complaints. Vital Signs Temp Pulse Resp BP Pulse Ox 07/02/18 05:28 97.7 F 61 17 98/63 L 99 07/01/18 17:41 97.3 F L 65 16 96/66 L 95 Intake and Output 07/02/18 07/02/18 07/02/18 06:59 14:59 22:59 Intake Total 480 / 480 Balance 480 / 480 Intake: Oral 480 / 480 Other: # Voids 1 Labs reviewed. Review of Systems All other systems reviewed negative except as stated in HPI Mental Status Examination Appearance: Appropriate Consciousness: Alert Orientation: Person, Place (At least) Motor Activity: Other (No abnormal motor movements noted) Speech: Unremarkable Language: Adequate Fund of Knowledge: Adequate Attention and Concentration: Adequate Memory: Unremarkable (Grossly intact on clinical exam) Mood: Anxious, Other (Mildly dysphoric) Affect: Appropriate Thought Process & Associations: Intact Thought Content: Appropriate Hallucination Type: None Delusion Type: None Suicidal Ideation: No Homicidal Ideation: No Mental Status Exam Remarks: Insight and judgment are fair Assessment and Plan - Assessment (1) Adjustment disorder with mixed disturbance of emotions and conduct Code(s): F43.25 - Adjustment disorder with mixed disturbance of emotions and conduct Status: Acute (2) Alcohol abuse Code(s): F10.10 - Alcohol abuse, uncomplicated Status: Acute - Plan Plan: Continue current psychotropic medications as ordered. Continue to monitor on the inpatient unit. Continue other medications and care as ordered. Justification for Continued Inpatient Stay: Complicating condition. High risk for decompensation in less restrictive environment. Discharge Planning: Pending safe discharge plan. Request Healthcare Surrogate/Guardian Advocate?: No
--- NOTE | 2018-07-02 15:18 | P.TTN ---
- Patient Problems Problems: 1. Discharge planning 2. Medication compliance 3. Knowledge deficit 4. Lack of coping skills - Progress Toward Goals Provider Present: Dr. Jose Palomo (Increased Gabapentin, medical complaints have been addressed.) Provider Input: 07/02/2018; per doctor no med change, patient continues to be treated for current medical Nurse(s) Present: RN Nurse Input: 07/02/2018; Per RN patient lack motivation, she is taking her med, eating meals no behavior Psychiatric Counselors Present: Paddy English Jr., [facility] (Discuss safe discharge plan with patient), Sunitha Maher [facility] Psychiatric Therapist Input: 07/02/2018; patient has been given a homeless package, counselor and dc menu planner will continue exploring homeless [facility] options Group Spec/RT/OT/BARRY Present: Skyler Garcia OT, JHONNY Fernando (Pt. attends select groups regularly.) Group Spec/RT/OT/BARRY Input: 07/02/2018; patient has been medically unable to attend groups or activities - Documentation Teaching Recipient: Patient
[2018-07-02] MEDS: Melatonin 5 MG Tablet PO PRN (20:05)
--- NOTE | 2018-07-03 09:03 | P.PNPSY ---
Subjective Chief Complaint: SI Remarks: Patient seen and examined with nurse. Chart reviewed. Case discussed with nursing staff. No behavioral issues noted overnight. On my examination today, the patient overall seems to be improving. Her affect is more reactive. She does not verbalize any SI. She denies side effects from medications. We discussed titrating her Seroquel for additional mood stabilization, and the patient is interested in pursuing this option. She continues to complain of some white lights in her lower visual field L>R and increased in times of stress or anxiety; I will request the hospitalist follow up on this. No other physical complaints. Vital Signs Temp Pulse Resp BP Pulse Ox 07/03/18 05:31 97.6 F 65 15 104/58 L 94 L 07/02/18 17:52 97 F L 91 H 18 106/62 97 Intake and Output 07/02/18 07/03/18 07/03/18 22:59 06:59 14:59 Intake Total 1800 / 1800 240 / 240 Balance 1800 / 1800 240 / 240 Intake: Oral 1800 / 1800 240 / 240 Other: # Voids 4 1 Date of Last Bowel Movement 07/02/18 Labs reviewed. No new labs. Review of Systems All other systems reviewed negative except as stated in HPI Mental Status Examination Appearance: Appropriate Consciousness: Alert Orientation: Person, Place (At least) Motor Activity: Other (No motoric abnormalities noted) Speech: Unremarkable Language: Adequate Fund of Knowledge: Adequate Attention and Concentration: Adequate Memory: Unremarkable (Grossly intact on clinical exam) Mood: Other (Mood improving) Affect: Appropriate Thought Process & Associations: Intact, Logical, Linear Thought Content: Appropriate Hallucination Type: None Delusion Type: None Suicidal Ideation: No Homicidal Ideation: No Insight: Fair Judgment: Impulsive Assessment and Plan - Assessment (1) Adjustment disorder with mixed disturbance of emotions and conduct Code(s): F43.25 - Adjustment disorder with mixed disturbance of emotions and conduct Status: Acute (2) Alcohol abuse Code(s): F10.10 - Alcohol abuse, uncomplicated Status: Acute - Plan Plan: Titrate nighttime dose of Seroquel to 250 mg for mood stabilization. Reconsult hospitalist as noted above. Continue to monitor on the medical psychiatric unit. Continue other medications and care as ordered. Justification for Continued Inpatient Stay: Medication changes. Complicating condition. Risk for decompensation in less restrictive environment. Discharge Planning: Pending safe discharge plan. Request Healthcare Surrogate/Guardian Advocate?: No
[2018-07-03] MEDS: Gabapentin 300 MG Capsule PO SCH ×3 (10:53→18:25)
[2018-07-03] MEDS: QUEtiapine 100 MG Tablet PO SCH ×2 (10:53→20:38)
[2018-07-03] MEDS: Topiramate 25 MG Tablet PO SCH ×2 (10:54→20:39)
--- NOTE | 2018-07-03 13:37 | P.PN ---
Subjective Interval history: Patient is seen sitting in bed in room. Hospitalist service was reconsulted due to complaint of patient seeing white lights primarily in her left eye. She tells me that she is periodically seeing a flashing white light in the lower part of her field of vision that moves from one side to the other. Less frequently she experiences a similar white light in her right eye that progresses from the center of her field of vision through the top of her field of vision. Denies any blurriness or change in vision. Does endorse occasional floaters but says this is different. She does wear cheaters. Has not had an eye exam in ears. No history of diabetes or hypertension. No history of eye injury or eye disease. Physical Exam Vital signs: Vital Signs 07/02/18 17:52 07/03/18 05:31 Temperature 97 F L 97.6 F Pulse Rate 91 H 65 Respiratory Rate 18 15 Blood Pressure 106/62 104/58 L Pulse Oximetry 97 94 L Intake & Output 07/02/18 07/03/18 07/03/18 18:59 06:59 18:59 Intake Total 1560 / 1560 480 / 480 Balance 1560 / 1560 480 / 480 Intake: Oral 1560 / 1560 480 / 480 Other: # Voids 4 1 Date of Last Bowel Movement 07/02/18 07/02/18 Narrative: GENERAL: Well-developed, well-nourished, female in no apparent distress SKIN: Warm and dry. HEAD: Atraumatic. Normocephalic. EYES: PERRLA. No scleral icterus. No injection or drainage. ENT: No nasal bleeding or discharge. Mucous membranes pink and moist. CARDIOVASCULAR: Regular rate and rhythm. RESPIRATORY: No accessory muscle use. Clear to auscultation. Breath sounds equal bilaterally. MUSCULOSKELETAL: Extremities without clubbing, cyanosis, or edema. No obvious deformities. NEUROLOGICAL: Awake and alert. No obvious cranial nerve deficits. Motor grossly within normal limits. Normal speech. Results - Labs CBC & Chem 7: 06/28/18 07:22 06/28/18 07:22 Assessment and Plan - Assessment (1) Clostridium difficile diarrhea Code(s): A04.72 - Enterocolitis due to Clostridium difficile, not specified as recurrent Status: Acute (2) Suicidal ideation Code(s): R45.851 - Suicidal ideations Status: Acute (3) Drug-induced psychotic disorder Code(s): F19.959 - Other psychoactive substance use, unspecified with psychoactive substance-induced psychotic disorder, unspecified Status: Acute (4) Depression Code(s): F32.9 - Major depressive disorder, single episode, unspecified Status : Acute (5) Bipolar disorder, current episode depressed, severe, without psychotic features Code(s): F31.4 - Bipolar disorder, current episode depressed, severe, without psychotic features Status: Acute - Plan Ms. El is a 43-year-old female who was brought to the hospital under [place] act due to altered mental status, depression, suicidal ideation and heavy alcohol use. She admitted to drinking ethanol as well as isopropyl alcohol. Patient was originally admitted to the hospitalist service and was subsequently admitted to psychiatry unit. Hospitalist service was re-consulted for vision changes. Vision change/white flashes -We will consult ophthalmology for evaluation -No obvious indication of infection or foreign body. -Possibly related to anxiety Thank you for this re-consult. We look forward to assisting in the medical management of this patient
[2018-07-04] MEDS: Gabapentin 300 MG Capsule PO SCH ×3 (10:04→17:09)
[2018-07-04] MEDS: Topiramate 25 MG Tablet PO SCH ×2 (10:04→21:55)
[2018-07-04] MEDS: QUEtiapine 100 MG Tablet PO SCH ×2 (10:08→21:56)
--- NOTE | 2018-07-04 11:56 | P.PNPSY ---
Subjective Chief Complaint: SI Remarks: Patient seen and examined. Chart reviewed. Case discussed with staff. On my exam today, patient reports she is feeling a little more down today, which she says may be related to the inclement weather. No SI. Continues to complain of dots in her visual field, and I note that hospitalist has consulted ophthalmology. She reports her sleep was somewhat disrupted by nightmare last night. She says that she dreamt she was in a car with 2 people who she feels represented friends who abuse drugs. She does endorse a history of nightmares in the past. We discuss possible pharmacologic options for management of nightmares but ultimately decide against adding a medication for this problem. No reported side effects from medications. No other physical complaints. Vital Signs Temp Pulse Resp BP Pulse Ox 07/04/18 05:40 98.6 F 73 16 115/60 99 07/03/18 18:00 97.9 F 84 18 107/63 97 Intake and Output 07/03/18 07/04/18 07/04/18 22:59 06:59 14:59 Intake Total 960 / 960 720 / 720 480 / 480 Balance 960 / 960 720 / 720 480 / 480 Intake: Oral 960 / 960 720 / 720 480 / 480 Other: # Voids 3 1 Date of Last Bowel Movement 07/03/18 Weight 75.3 kg Labs reviewed. No new labs. Review of Systems All other systems reviewed negative except as stated in HPI Mental Status Examination Appearance: Appropriate Consciousness: Alert Orientation: Person, Place (At least) Motor Activity: Other (No abnormal motor movements noted) Speech: Unremarkable Language: Adequate Fund of Knowledge: Adequate Attention and Concentration: Adequate Memory: Unremarkable (Grossly intact on clinical exam) Mood: Other (Mood improving) Affect: Appropriate Thought Process & Associations: Intact, Logical, Linear Thought Content: Appropriate Hallucination Type: None ("Dots" are not suspected to represent hallucinations of psychiatric origin) Delusion Type: None Suicidal Ideation: No Suicidal Plan: No Suicidal Intention: No Homicidal Ideation: No Homicidal Plan: No Homicidal Intention: No Insight: Fair Judgment: Impulsive Assessment and Plan - Assessment (1) Adjustment disorder with mixed disturbance of emotions and conduct Code(s): F43.25 - Adjustment disorder with mixed disturbance of emotions and conduct Status: Acute (2) Alcohol abuse Code(s): F10.10 - Alcohol abuse, uncomplicated Status: Acute - Plan Plan: Continue current psychotropics as ordered. Await ophthalmology consultation. Hospitalist input noted and appreciated. Continue to monitor on the medical psychiatric unit. Continue other medications and care as ordered. Justification for Continued Inpatient Stay: Complicating condition. Risk for decompensation in less restrictive environment. Discharge Planning: Pending safe discharge plan. Request Healthcare Surrogate/Guardian Advocate?: No
--- NOTE | 2018-07-04 15:53 | P.PN ---
Subjective Interval history: Patient seen lying in bed. She tells me that ophthalmology has not yet been in to see her. She is continuing to see the white flashes as described previously. No fever or chills. No other changes syncope. Physical Exam Vital signs: Vital Signs 07/03/18 18:00 07/04/18 05:40 Temperature 97.9 F 98.6 F Pulse Rate 84 73 Respiratory Rate 18 16 Blood Pressure 107/63 115/60 Pulse Oximetry 97 99 Intake & Output 07/03/18 07/04/18 07/04/18 18:59 06:59 18:59 Intake Total 1200 / 1200 720 / 720 960 / 960 Balance 1200 / 1200 720 / 720 960 / 960 Weight 75.3 kg Intake: Oral 1200 / 1200 720 / 720 960 / 960 Other: # Voids 3 1 Date of Last Bowel Movement 07/03/18 07/03/18 Narrative: GENERAL: Well-developed, well-nourished, female in no apparent distress SKIN: Warm and dry. HEAD: Atraumatic. Normocephalic. EYES: PERRLA. No scleral icterus. No injection or drainage. ENT: No nasal bleeding or discharge. Mucous membranes pink and moist. CARDIOVASCULAR: Regular rate and rhythm. RESPIRATORY: No accessory muscle use. Clear to auscultation. Breath sounds equal bilaterally. MUSCULOSKELETAL: Extremities without clubbing, cyanosis, or edema. No obvious deformities. NEUROLOGICAL: Awake and alert. No obvious cranial nerve deficits. Motor grossly within normal limits. Normal speech. Results - Labs CBC & Chem 7: 06/28/18 07:22 06/28/18 07:22 Assessment and Plan - Assessment (1) Clostridium difficile diarrhea Code(s): A04.72 - Enterocolitis due to Clostridium difficile, not specified as recurrent Status: Acute (2) Suicidal ideation Code(s): R45.851 - Suicidal ideations Status: Acute (3) Drug-induced psychotic disorder Code(s): F19.959 - Other psychoactive substance use, unspecified with psychoactive substance-induced psychotic disorder, unspecified Status: Acute (4) Depression Code(s): F32.9 - Major depressive disorder, single episode, unspecified Status : Acute (5) Bipolar disorder, current episode depressed, severe, without psychotic features Code(s): F31.4 - Bipolar disorder, current episode depressed, severe, without psychotic features Status: Acute - Plan Ms. El is a 43-year-old female who was brought to the hospital under [place] due to altered mental status, depression, suicidal ideation and heavy alcohol use. She admitted to drinking ethanol as well as isopropyl alcohol. Patient was originally admitted to the hospitalist service and was subsequently admitted to psychiatry unit. Hospitalist service was re-consulted for vision changes. Vision change/white flashes -We will consult ophthalmology for evaluation -No obvious indication of infection or foreign body. -Possibly related to anxiety Patient appears to be medically stable. We will defer continued management of the vision changes to ophthalmology. Recommend that patient also follow-up outpatient. Hospitalist service will sign off at this time please reconsult if needed. Thank you.
[2018-07-04] MEDS: Melatonin 5 MG Tablet PO PRN (21:56)
--- NOTE | 2018-07-05 09:37 | P.CON ---
History of Present Illness Service: Ophthalmology Reason for Consult: flashing lights Primary Care Provider: No Primary Care Physician Chief Complaint: Diarrhea, Abdominal pain History of Present Illness: 43 yo F with a history of depression, Hep C who was brought to the hospital under [place] act due to altered mental status, depression, suicidal attempt/ ideation, alcohol use. States she has had flashing lights in both eyes for approx the last 10 days. No significant ocular history. PMFSH - History History Provided By: Patient - Medical History Medical History: Medical History (Last Updated 06/26/18 @ 14:09 by Mariah Veras) MDRO (multiple drug resistant organisms) resistance Onset Date: ~06/26/18 Abuse of both oxycodone and heroin Alcoholic Depression Hepatitis C Molly - Surgical History Surgical History: Surgical History (Last Reviewed 06/22/18 @ 14:17 by Elvin Caemron DO) Gastric bypass status for obesity - Tobacco History Second Hand Smoke Exposure: Yes Tobacco Use In Past 30 Days: Yes Smoking Status: Current every day smoker Tobacco Type: Cigarettes - Alcohol History How Often Do You Have a Drink Containing Alcohol: 4 or more times a week - Substance Use History Substance History: Active Abuse - Substance Use Type Crack/Cocaine Type: HEROIN Status: Active Route Used: Inhalation, Intravenously Reason for Use: Get High Comment: PT HAS A SIGNIFICANT HX OF HEROIN, CRACK, COCAINE AND WEED ABUSE, ALONG WITH 10-12 BEERS/DAY - Travel History Recent Travel in the [place] Within the Last 8 Weeks: No Recent Travel Out of the Country Within the Last 8 Weeks: No - Immunization History Tetanus Immunization: Unsure Tetanus Immunization Year if Known: 2009 Hx Influenza Vaccine This Season: No Medications and Allergies Active Medications: Active Medications Acetaminophen (Tylenol) 650 mg PO Q4H PRN PRN Reason: Pain 1-5 or Temp >101F Last Admin: 06/26/18 08:59 Dose: 650 mg Al Hydrox/Mg Hydrox/Simethicone (Mag-Al Plus Susp Liq) 30 ml PO Q6H PRN PRN Reason: DYSPEPSIA Last Admin: 06/24/18 06:00 Dose: 30 ml Al Hydroxide/Mg Hydroxide (Milk Of Magnesia Liq) 30 ml PO Q12H PRN PRN Reason: Mild Constipation Cholestyramine Resin (Questran 4 Gm Pkt) 4 gm PO BID PRN PRN Reason: Diarrhea Last Admin: 07/01/18 18:16 Dose: 4 gm Flumazenil (Romazecon Inj) 0.2 mg IV.PUSH Q1M PRN PRN Reason: OVERSEDATION Gabapentin (Neurontin) 600 mg PO TID [facility] Last Admin: 07/04/18 17:09 Dose: 600 mg Hydroxyzine HCl (Atarax) 50 mg PO Q6H PRN PRN Reason: ANXIETY Last Admin: 06/30/18 13:25 Dose: 50 mg Lorazepam (Ativan Inj) 2 mg IM Q6H PRN PRN Reason: SEIZURES Melatonin (Melatonin) 5 mg PO HS PRN PRN Reason: INSOMNIA Last Admin: 07/04/18 21:56 Dose: 5 mg Miscellaneous (Pill Splitter) 1 each OTHER UNSCH PRN PRN Reason: SEE LABEL COMMENTS Nicotine (Habitrol 14 Mg Patch.24 Hr) 1 patch T-DERMAL DAILY PRN PRN Reason: Nicotine craving Nystatin (Mycostatin Cream) 1 applicatio TOPICAL BID [facility] Stop: 07/06/18 21:00 Last Admin: 07/04/18 21:38 Dose: 1 applicatio Patch Removal (Remove Old Patch) 1 each T-DERMAL DAILY [facility] Last Admin: 07/04/18 10:04 Dose: Not Given Quetiapine Fumarate (Seroquel) 100 mg PO DAILY [facility] Last Admin: 07/04/18 10:08 Dose: 100 mg Quetiapine Fumarate (Seroquel) 250 mg PO HS [facility] Last Admin: 07/04/18 21:56 Dose: 250 mg Thiamine HCl (Vitamin B1) 100 mg PO DAILY [facility] Last Admin: 07/04/18 10:08 Dose: 100 mg Topiramate (Topamax) 25 mg PO BID [facility] Last Admin: 07/04/18 21:55 Dose: 25 mg Vancomycin HCl (Vancomycin Po) 125 mg PO Q6H [facility] Stop: 07/10/18 16:59 Last Admin: 07/05/18 05:24 Dose: 125 mg Allergies Allergy/AdvReac Type Severity Reaction Status Date / Time No Known Allergies Allergy Unverified 06/20/18 01:28 Home Medications Medication Instructions Recorded Confirmed Type buprenorphine-naloxone [Suboxone] 8 mg SUBLINGUAL TID 04/12/18 06/20/18 History gabapentin [Neurontin] 300 mg PO BID 04/12/18 06/20/18 History lamotrigine [Lamictal] 15 mg PO DAILY 04/12/18 06/20/18 History Physical Exam Vital signs: Vital Signs 07/04/18 18:00 07/05/18 05:19 Temperature 98 F 97.4 F L Pulse Rate 18 L 72 Respiratory Rate 16 Blood Pressure 107/67 92/57 L Pulse Oximetry 98 96 Intake & Output 07/04/18 07/05/18 07/05/18 18:59 06:59 18:59 Intake Total 2880 / 2880 240 / 240 960 / 960 Balance 2880 / 2880 240 / 240 960 / 960 Intake: Oral 2880 / 2880 240 / 240 960 / 960 Other: # Voids 3 1 Date of Last Bowel Movement 07/03/18 07/03/18 - Detailed Eye Exam Comments: Va cc at near OD 20/20, OS 20/20 EOM full OU, no diplopia CVF full OU Pupils 2-1 no APD OU IOP normal to palpation OU Anterior exam OD - normal eyelid, C/S W&Q, K clear, AC deep, pupil round, lens clear OS - normal eyelid, C/S W&Q, K clear, AC deep, pupil round, lens clear Dilated exam OD - ON s/p/f, ves normal, vit clear, retina flat OS - ON s/p/f, ves normal, vit clear, retina flat Assessment and Plan - Assessment (1) Photopsia Code(s): H53.19 - Other subjective visual disturbances Status: Acute Plan: Normal dilated exam. Could be medication related (patient states she was recently started on Topamax and Seroquel). Could do trial off each medication to see if symptoms resolve.
[2018-07-05] MEDS: Gabapentin 300 MG Capsule PO SCH ×3 (10:42→18:21)
[2018-07-05] MEDS: QUEtiapine 100 MG Tablet PO SCH ×2 (10:42→21:15)
[2018-07-05] MEDS: Topiramate 25 MG Tablet PO SCH ×2 (10:45→21:14)
--- NOTE | 2018-07-05 13:02 | P.PNPSY ---
Subjective Chief Complaint: SI Remarks: Patient seen and examined. Chart reviewed. Case discussed with nursing staff who reports patient has not been having any loose stools or other physical issues. On my examination today, patient remains essentially unchanged from a psychiatric standpoint. Affect is fair. No SI or HI. She reports that the visual phenomena for which ophthalmology was consulted are perhaps decreasing a little bit and are not terribly bothersome to her. I did discuss the suggestion by county extension agent that visual phenomena could be medication related. I did offer her to try to taper/discontinue possible offending medications, but the patient feels that the benefits that she is deriving from medications outweigh this potential side effect, and she declines to try to taper/discontinue medications at this time. She does complain of some abdominal pain and says that she has had 2 stools today but denies any bloody stools or emesis. I have informed to the nurse of this and have instructed the nurse to ask the hospitalist to return to evaluate patient further should this trend of GI symptoms continue or worsen. Vital Signs Temp Pulse Resp BP Pulse Ox 07/05/18 05:19 97.4 F L 72 16 92/57 L 96 07/04/18 18:00 98 F 18 L 107/67 98 Intake and Output 07/05/18 07/05/18 07/05/18 06:59 14:59 22:59 Intake Total 240 / 240 2880 / 2880 Balance 240 / 240 2880 / 2880 Intake: Oral 240 / 240 2880 / 2880 Other: # Voids 1 Labs reviewed. No new labs. Review of Systems All other systems reviewed negative except as stated in HPI Mental Status Examination Appearance: Appropriate Consciousness: Alert Orientation: Person, Place (At least) Motor Activity: Other (No abnormal motor movements appreciated) Speech: Unremarkable Language: Adequate Fund of Knowledge: Adequate Attention and Concentration: Adequate Memory: Unremarkable (Grossly intact on clinical exam) Mood: Appropriate Affect: Appropriate Thought Process & Associations: Intact, Logical, Linear Thought Content: Appropriate Hallucination Type: None ("Dots" are not suspected to represent hallucinations of psychiatric origin) Delusion Type: None Suicidal Ideation: No Suicidal Plan: No Suicidal Intention: No Homicidal Ideation: No Homicidal Plan: No Homicidal Intention: No Mental Status Exam Remarks: Insight and judgment are fair Assessment and Plan - Assessment (1) Adjustment disorder with mixed disturbance of emotions and conduct Code(s): F43.25 - Adjustment disorder with mixed disturbance of emotions and conduct Status: Acute (2) Alcohol abuse Code(s): F10.10 - Alcohol abuse, uncomplicated Status: Acute - Plan Plan: Patient declines medication adjustment at this time. Continue to monitor on the medical psychiatric unit. Continue current medications and care as ordered. Justification for Continued Inpatient Stay: Risk for decompensation in less restrictive environment. Discharge Planning: Pending further discharge planning Request Healthcare Surrogate/Guardian Advocate?: No
--- NOTE | 2018-07-05 13:38 | P.TTN ---
- Patient Problems Problems: 1. Discharge planning 2. Medication compliance 3. Knowledge deficit 4. Lack of coping skills - Progress Toward Goals Provider Present: Dr. Jose Palomo (Increased Gabapentin, medical complaints have been addressed.) Provider Input: 07/05/2018: Per doctor he has not made med change, patient however is still being treated for Cdiff until 10 July 2018. 07/02/2018; per doctor no med change, patient continues to be treated for current medical Nurse(s) Present: RN Nurse Input: 07/05/2018; per RN patient is taking medication, and eating meals, no behavior issues. 07/02/2018; Per RN patient lack motivation, she is taking her med, eating meals no behavior Psychiatric Counselors Present: Paddy English Jr., [facility] (Discuss safe discharge plan with patient), Sunitha Maher [facility] Psychiatric Therapist Input: 07/05/2018; counselor is working with automotive fleet supervisor and DC farm planner searching for appropriate homeless setting for patient. 2017; patient has been given a homeless package, counselor and dc farm planner will continue exploring homeless fdc options Group Spec/RT/OT/BARRY Present: Sandra Gomez, GPS, Skyler Garcia, OT, JHONNY Fernando (Pt. attends select groups regularly.) Group Spec/RT/OT/BARRY Input: 07/05/2018; patient has been unable to participate with groups or activities. 07/02/2018; patient has been medically unable to attend groups or activities - Documentation Teaching Recipient: Patient
[2018-07-06] MEDS: Topiramate 25 MG Tablet PO SCH ×2 (10:21→20:39)
[2018-07-06] MEDS: Gabapentin 300 MG Capsule PO SCH ×2 (10:21→18:00)
[2018-07-06] MEDS: QUEtiapine 100 MG Tablet PO SCH ×2 (10:21→20:39)
--- NOTE | 2018-07-06 17:14 | P.PNPSY ---
Subjective Chief Complaint: SI Remarks: Patient was seen and case discussed with nursing. Patient says her mood has improved and she no longer has suicidal ideation. She is pleasant during the interview. Compliant with her medications. Continues to complain of persistent nightmares. Mental Status Examination Appearance: Appropriate Consciousness: Alert Orientation: Person, Place (At least) Motor Activity: Other (No abnormal motor movements appreciated) Speech: Unremarkable Language: Adequate Fund of Knowledge: Adequate Attention and Concentration: Adequate Memory: Unremarkable (Grossly intact on clinical exam) Mood: Appropriate Affect: Appropriate Thought Process & Associations: Intact, Logical, Linear Thought Content: Appropriate Hallucination Type: None ("Dots" are not suspected to represent hallucinations of psychiatric origin) Delusion Type: None Suicidal Ideation: No Suicidal Plan: No Suicidal Intention: No Homicidal Ideation: No Homicidal Plan: No Homicidal Intention: No Insight: Fair Judgment: Impulsive Assessment and Plan - Assessment (1) Adjustment disorder with mixed disturbance of emotions and conduct Code(s): F43.25 - Adjustment disorder with mixed disturbance of emotions and conduct Status: Acute (2) Alcohol abuse Code(s): F10.10 - Alcohol abuse, uncomplicated Status: Acute - Plan Plan: Patient declines medication adjustment at this time. Continue to monitor on the medical psychiatric unit. Continue current medications and care as ordered. Justification for Continued Inpatient Stay: Patient would decompensate in a less restrictive setting Request Healthcare Surrogate/Guardian Advocate?: No
[2018-07-07] MEDS: Topiramate 25 MG Tablet PO SCH ×2 (10:12→20:11)
[2018-07-07] MEDS: QUEtiapine 100 MG Tablet PO SCH ×2 (10:12→20:11)
[2018-07-07] MEDS: Gabapentin 300 MG Capsule PO SCH ×3 (10:13→18:01)
[2018-07-07] MEDS: Acetaminophen 325 MG Tablet PO PRN ×2 (10:24→17:57)
--- NOTE | 2018-07-07 11:20 | P.PNPSY ---
Subjective Chief Complaint: SI Remarks: Patient was seen and case discussed with nursing. Today, patient remains in a "okay mood." She is less irritable and demanding. He has not had any visitors or phone calls. She is compliant with her medication and keeps to herself Mental Status Examination Appearance: Appropriate Consciousness: Alert Orientation: Person, Place (At least) Motor Activity: Other (No abnormal motor movements appreciated) Speech: Unremarkable Language: Adequate Fund of Knowledge: Adequate Attention and Concentration: Adequate Memory: Unremarkable (Grossly intact on clinical exam) Mood: Appropriate Affect: Appropriate Thought Process & Associations: Intact, Logical, Linear Thought Content: Appropriate Hallucination Type: None ("Dots" are not suspected to represent hallucinations of psychiatric origin) Delusion Type: None Suicidal Ideation: No Suicidal Plan: No Suicidal Intention: No Homicidal Ideation: No Homicidal Plan: No Homicidal Intention: No Insight: Fair Judgment: Impulsive Assessment and Plan - Assessment (1) Adjustment disorder with mixed disturbance of emotions and conduct Code(s): F43.25 - Adjustment disorder with mixed disturbance of emotions and conduct Status: Acute (2) Alcohol abuse Code(s): F10.10 - Alcohol abuse, uncomplicated Status: Acute - Plan Plan: Patient declines medication adjustment at this time. Continue to monitor on the medical psychiatric unit. Continue current medications and care as ordered. Justification for Continued Inpatient Stay: Patient would decompensate in a less restrictive setting Request Healthcare Surrogate/Guardian Advocate?: No
[2018-07-08] MEDS: Acetaminophen 325 MG Tablet PO PRN ×3 (03:13→17:18)
[2018-07-08] MEDS: Gabapentin 300 MG Capsule PO SCH ×3 (08:19→17:18)
[2018-07-08] MEDS: Topiramate 25 MG Tablet PO SCH ×2 (08:20→21:52)
[2018-07-08] MEDS: QUEtiapine 100 MG Tablet PO SCH ×2 (08:21→21:52)
--- NOTE | 2018-07-08 08:57 | P.PNPSY ---
Subjective Chief Complaint: SI Remarks: Patient seen and examined with nurse. Chart reviewed. Case discussed with nursing staff. No behavioral issues noted overnight. I was called as the physician on-call as nurse had noted cystic lesion on patient's back. I have requested hospitalist consultation for this, presently pending. On my examination today, patient reports her mood is okay. She denies any SI or HI. She denies any audiovisual hallucinations except she is still experiencing some visual phenomena as before, which she attributes to the vancomycin. I did offer to try to alter therapy, but the patient does not feel that reported perceptual disturbances are problematic enough to do so, especially in light of the fact that vancomycin course will be completed later this week. No other medication side effects reported. Vital Signs Temp Pulse Resp BP Pulse Ox 07/08/18 05:36 97.6 F 85 16 97/52 L 98 07/07/18 19:03 97.7 F 70 18 107/62 97 Intake and Output 07/07/18 07/08/18 07/08/18 22:59 06:59 14:59 Intake Total 1380 / 1380 Balance 1380 / 1380 Intake: Oral 1280 / 1280 Oral Supplement 100 / 100 Other: # Voids 3 2 Labs reviewed. No new labs. Review of Systems All other systems reviewed negative except as stated in HPI Mental Status Examination Appearance: Appropriate Consciousness: Alert Orientation: Person, Place (At least) Motor Activity: Other (No motoric abnormalities noted) Speech: Unremarkable Language: Adequate Fund of Knowledge: Adequate Attention and Concentration: Adequate Memory: Unremarkable (Grossly intact on clinical exam) Mood: Appropriate Affect: Appropriate Thought Process & Associations: Intact, Logical, Linear Thought Content: Appropriate Hallucination Type: Other (Except for "dots" no hallucinatory material. No auditory hallucinations.) Delusion Type: None Suicidal Ideation: No Suicidal Plan: No Suicidal Intention: No Homicidal Ideation: No Homicidal Plan: No Homicidal Intention: No Insight: Adequate Judgment: Adequate Assessment and Plan - Assessment (1) Adjustment disorder with mixed disturbance of emotions and conduct Code(s): F43.25 - Adjustment disorder with mixed disturbance of emotions and conduct Status: Acute (2) Alcohol abuse Code(s): F10.10 - Alcohol abuse, uncomplicated Status: Acute - Plan Plan: Continue current psychotropic medications as ordered. Follow-up hospitalist recommendations. Continue to monitor on the inpatient unit. Continue other medications and care as ordered. Justification for Continued Inpatient Stay: Risk for decompensation in less restrictive environment. Discharge Planning: Pending further discharge planning. Request Healthcare Surrogate/Guardian Advocate?: No
--- NOTE | 2018-07-08 14:48 | P.PN ---
Subjective Interval history: Hospitalist service reconsulted for lesion on patient lower back. Patient says she has never had any kind of infection or folliculitis in this area. It is tender and warm. She has not noted any drainage but it is hard for her to tell. No fevers or chills. No nausea or vomiting. Physical Exam Vital signs: Vital Signs 07/07/18 19:03 07/08/18 05:36 Temperature 97.7 F 97.6 F Pulse Rate 70 85 Respiratory Rate 18 16 Blood Pressure 107/62 97/52 L Pulse Oximetry 97 98 Intake & Output 07/07/18 07/08/18 07/08/18 18:59 06:59 18:59 Intake Total 1040 / 1040 340 / 340 Balance 1040 / 1040 340 / 340 Intake: Oral 1040 / 1040 240 / 240 Oral Supplement 100 / 100 Other: # Voids 3 2 Date of Last Bowel Movement 07/05/18 07/08/18 Narrative: GENERAL: Well-developed, well-nourished, female in no apparent distress SKIN: Warm and dry. Cystlike lesion at top of gluteal cleft. Area of surrounding induration, erythema and warmth. No drainage noted. HEAD: Atraumatic. Normocephalic. CARDIOVASCULAR: Regular rate and rhythm. RESPIRATORY: No accessory muscle use. Clear to auscultation. Breath sounds equal bilaterally. MUSCULOSKELETAL: Extremities without clubbing, cyanosis, or edema. No obvious deformities. NEUROLOGICAL: Awake and alert. No obvious cranial nerve deficits. Motor grossly within normal limits. Normal speech. Results - Labs CBC & Chem 7: 06/28/18 07:22 06/28/18 07:22 Assessment and Plan - Assessment (1) Clostridium difficile diarrhea Code(s): A04.72 - Enterocolitis due to Clostridium difficile, not specified as recurrent Status: Acute (2) Suicidal ideation Code(s): R45.851 - Suicidal ideations Status: Acute (3) Drug-induced psychotic disorder Code(s): F19.959 - Other psychoactive substance use, unspecified with psychoactive substance-induced psychotic disorder, unspecified Status: Acute (4) Depression Code(s): F32.9 - Major depressive disorder, single episode, unspecified Status : Acute (5) Bipolar disorder, current episode depressed, severe, without psychotic features Code(s): F31.4 - Bipolar disorder, current episode depressed, severe, without psychotic features Status: Acute - Plan Ms. El is a 43-year-old female who was brought to the hospital under [facility] act due to altered mental status, depression, suicidal ideation and heavy alcohol use. She admitted to drinking ethanol as well as isopropyl alcohol. Patient was originally admitted to the hospitalist service and was subsequently admitted to psychiatry unit. Hospitalist service was re-consulted for infection Abscess/ Pilonidal cyst -Start Bactrim DS -US ordered to evaluate
--- NOTE | 2018-07-08 17:47 | US ---
EXAM DATE: 07/08/2018 5:40 PM EDT AGE/SEX: 43 years / Female INDICATIONS: Abscess. CLINICAL DATA: This is the patient's initial encounter. Patient reports that signs and symptoms have been present for 3 days and indicates a pain score of 6/10. MEDICAL/SURGICAL HISTORY: Hepatitis C. Abuse of oxycodone and heroin. Alcoholic. Depression. MD MÉNDEZ . Gastric bypass. COMPARISON: No prior exams available for comparison. FINDINGS: Ultrasounds performed of the lower back at the midline at the level of the gluteal cleft, demonstrate s a hypoechoic fluid collection in the subcutaneous fat measuring 5 x 3 x 3 mm with surrounding hyper emia. This extends to the skin surface. CONCLUSION: 1. There is a small focal fluid collection in the area of clinical concern extending to the skin yue face which would be consistent with a small abscess based on the clinical history. Electronically signed by: Garett Marie MD 07/08/2018 5:46 PM EDT
[2018-07-09] MEDS: Gabapentin 300 MG Capsule PO SCH ×3 (08:44→17:41)
[2018-07-09] MEDS: Topiramate 25 MG Tablet PO SCH ×2 (08:44→21:39)
[2018-07-09] MEDS: QUEtiapine 100 MG Tablet PO SCH (08:45)
[2018-07-09] MEDS: Acetaminophen 325 MG Tablet PO PRN ×2 (08:45→16:22)
--- NOTE | 2018-07-09 09:32 | P.PN ---
Subjective Interval history: Follow-up for sacral abscess. Patient is seen and examined in her room, continues to complain of tenderness on abscess area. Denies any drainage, fevers , chills, nausea or vomiting. No acute events reported by nurse. Physical Exam Vital signs: Vital Signs 07/08/18 17:54 07/08/18 20:00 07/09/18 06:29 Temperature 97.4 F L 97.4 F L 97.7 F Pulse Rate 76 76 68 Respiratory Rate 18 17 Blood Pressure 109/63 109/63 102/64 Pulse Oximetry 100 100 99 Intake & Output 07/08/18 07/09/18 07/09/18 18:59 06:59 18:59 Intake Total 580 / 580 480 / 480 Balance 580 / 580 480 / 480 Intake: Oral 480 / 480 480 / 480 Oral Supplement 100 / 100 Other: # Voids 1 Date of Last Bowel Movement 07/08/18 Narrative: GENERAL: Well-developed, well-nourished, female in no apparent distress SKIN: Warm and dry. Cystlike lesion between gluteal clefts/sacral area. Area of surrounding induration, erythema with no warmth. No drainage noted. HEAD: Atraumatic. Normocephalic. CARDIOVASCULAR: Regular rate and rhythm. RESPIRATORY: No accessory muscle use. Clear to auscultation. Breath sounds equal bilaterally. MUSCULOSKELETAL: Extremities without clubbing, cyanosis, or edema. No obvious deformities. NEUROLOGICAL: Awake and alert. No obvious cranial nerve deficits. Motor grossly within normal limits. Normal speech. Results - Labs CBC & Chem 7: 06/28/18 07:22 06/28/18 07:22 - Imaging Impressions Soft Tissue Ultrasound 07/08/18 00:00 CONCLUSION: 1. There is a small focal fluid collection in the area of clinical concern extending to the skin surface which would be consistent with a small abscess based on the clinical history. Assessment and Plan - Assessment (1) Clostridium difficile diarrhea Code(s): A04.72 - Enterocolitis due to Clostridium difficile, not specified as recurrent Status: Acute (2) Suicidal ideation Code(s): R45.851 - Suicidal ideations Status: Acute (3) Drug-induced psychotic disorder Code(s): F19.959 - Other psychoactive substance use, unspecified with psychoactive substance-induced psychotic disorder, unspecified Status: Acute (4) Depression Code(s): F32.9 - Major depressive disorder, single episode, unspecified Status : Acute (5) Bipolar disorder, current episode depressed, severe, without psychotic features Code(s): F31.4 - Bipolar disorder, current episode depressed, severe, without psychotic features Status: Acute - Plan Ms. El is a 43-year-old female who was brought to the hospital under [facility] act due to altered mental status, depression, suicidal ideation and heavy alcohol use. She admitted to drinking ethanol as well as isopropyl alcohol. Patient was originally admitted to the hospitalist service and was subsequently admitted to psychiatry unit. Hospitalist service was re-consulted for infection Abscess/ Pilonidal cyst -US reviewed, small focal fluid collection at area of concern extending to skin surface consistent with small abscess. - Continue with oral Bactrim, warm compresses, not fluctuant for I&D at this moment, US also noted this was small. - Afebrile with no worsening pain. - Monitor for worsening DVT prophylaxis-ambulation Discussed Condition With: Patient and RN
--- NOTE | 2018-07-09 11:17 | P.PNPSY ---
Subjective Chief Complaint: SI Remarks: Patient seen and examined with nurse. Chart reviewed. Case discussed with nursing staff. On my examination today, the patient is feeling somewhat more distressed secondary to sacral abscess. Mood is consequently somewhat more dysphoric. No SI or HI. No psychotic material. No side effects for meds. No acute physical complaints. Vital Signs Temp Pulse Resp BP Pulse Ox 07/09/18 06:29 97.7 F 68 17 102/64 99 07/08/18 20:00 97.4 F L 76 18 109/63 100 07/08/18 17:54 97.4 F L 76 18 109/63 100 Intake and Output 07/08/18 07/09/18 07/09/18 22:59 06:59 14:59 Intake Total 340 / 340 240 / 240 720 / 720 Balance 340 / 340 240 / 240 720 / 720 Intake: Oral 240 / 240 240 / 240 720 / 720 Oral Supplement 100 / 100 Other: # Voids 1 Date of Last Bowel Movement 07/08/18 Labs reviewed. No new labs. Review of Systems All other systems reviewed negative except as stated in HPI Mental Status Examination Appearance: Appropriate Consciousness: Alert Orientation: Person, Place (At least) Motor Activity: Other (No abnormal motor movements noted) Speech: Unremarkable Language: Adequate Fund of Knowledge: Adequate Attention and Concentration: Adequate Memory: Unremarkable (Grossly intact on clinical exam) Mood: Other (Mildly dysphoric) Affect: Appropriate Thought Process & Associations: Intact, Logical, Linear Thought Content: Appropriate Hallucination Type: None Delusion Type: None Suicidal Ideation: No Homicidal Ideation: No Insight: Adequate Judgment: Adequate Assessment and Plan - Assessment (1) Adjustment disorder with mixed disturbance of emotions and conduct Code(s): F43.25 - Adjustment disorder with mixed disturbance of emotions and conduct Status: Acute (2) Alcohol abuse Code(s): F10.10 - Alcohol abuse, uncomplicated Status: Acute - Plan Plan: Titrate Seroquel to 100 mg in the morning and 300 mg at bedtime for mood stabilization. Continue to monitor on the medical psychiatric unit. Hospitalist input noted and appreciated. Continue other medications and care as ordered. Justification for Continued Inpatient Stay: Medication changes. Risk for decompensation in less restrictive environment. Discharge Planning: Pending medical clearance/stabilization. Request Healthcare Surrogate/Guardian Advocate?: No
--- NOTE | 2018-07-10 08:26 | P.PN ---
Subjective Interval history: Follow-up for sacral abscess. Patient is seen and examined in her room. She tells me that yesterday after doing warm compresses to area she noted that a small scab fell off and then she had a greenish colored drainage come out. She denies any fevers, chills, N/V/D. Physical Exam Vital signs: Vital Signs 07/09/18 17:47 07/10/18 06:09 Temperature 97.8 F 97.3 F L Pulse Rate 76 75 Respiratory Rate 18 15 Blood Pressure 97/56 L 96/59 L Pulse Oximetry 97 Intake & Output 07/09/18 07/10/18 07/10/18 18:59 06:59 18:59 Intake Total 1080 / 1080 940 / 940 Balance 1080 / 1080 940 / 940 Intake: Oral 1080 / 1080 940 / 940 Other: # Voids 1 Date of Last Bowel Movement 07/08/18 Narrative: GENERAL: Well-developed, well-nourished, female in no apparent distress SKIN: Warm and dry. Cystlike lesion between gluteal clefts/sacral area, this has reduced in size. Area of surrounding induration, erythema with no warmth. No drainage noted. HEAD: Atraumatic. Normocephalic. CARDIOVASCULAR: Regular rate and rhythm. RESPIRATORY: No accessory muscle use. Clear to auscultation. Breath sounds equal bilaterally. MUSCULOSKELETAL: Extremities without clubbing, cyanosis, or edema. No obvious deformities. NEUROLOGICAL: Awake and alert. No obvious cranial nerve deficits. Motor grossly within normal limits. Normal speech. Results - Labs CBC & Chem 7: 06/28/18 07:22 06/28/18 07:22 Assessment and Plan - Assessment (1) Clostridium difficile diarrhea Code(s): A04.72 - Enterocolitis due to Clostridium difficile, not specified as recurrent Status: Acute (2) Suicidal ideation Code(s): R45.851 - Suicidal ideations Status: Acute (3) Drug-induced psychotic disorder Code(s): F19.959 - Other psychoactive substance use, unspecified with psychoactive substance-induced psychotic disorder, unspecified Status: Acute (4) Depression Code(s): F32.9 - Major depressive disorder, single episode, unspecified Status : Acute (5) Bipolar disorder, current episode depressed, severe, without psychotic features Code(s): F31.4 - Bipolar disorder, current episode depressed, severe, without psychotic features Status: Acute - Plan Ms. El is a 43-year-old female who was brought to the hospital under [facility] act due to altered mental status, depression, suicidal ideation and heavy alcohol use. She admitted to drinking ethanol as well as isopropyl alcohol. Patient was originally admitted to the hospitalist service and was subsequently admitted to psychiatry unit. Hospitalist service was re-consulted for infection Abscess/ Pilonidal cyst -US reviewed, small focal fluid collection at area of concern extending to skin surface consistent with small abscess. - Continue with oral Bactrim, warm compresses, not fluctuant for I&D at this moment, US also noted this was small. - + drainage with warm compresses and appears smaller in size today, patient with no fevers or chills. - Continue oral antibiotics, warm compresses, discussed with patient if worsen will need to get further medical attention. Cdiff - No diarrhea, patient to complete course of oral Vanco. DVT prophylaxis-ambulation Abscess resolving, if discharged patient should be provided with an Rx for the remainder of her Bactrim and Vanco course. Please call if there are questions or concerns. Otherwise patient is medically sable for discharge, [facility] will sign off.
[2018-07-10] MEDS: Gabapentin 300 MG Capsule PO SCH ×2 (08:44→12:09)
[2018-07-10] MEDS: QUEtiapine 100 MG Tablet PO SCH (08:44)
[2018-07-10] MEDS: Topiramate 25 MG Tablet PO SCH (08:44)
[2018-07-10] MEDS: Acetaminophen 325 MG Tablet PO PRN (08:45)
--- NOTE | 2018-07-10 12:02 | P.DSPSY ---
Psychiatry Discharge Summary Inpatient Psychiatric care?: Yes Advance Directives: No Mental Health Advance Directive: No Health Care Proxy: No - Admission Admission Date: June 21, 2018 16:50 - Admission Diagnosis (1) Bipolar disorder, current episode depressed, severe, without psychotic features Code(s): F31.4 - Bipolar disorder, current episode depressed, severe, without psychotic features (2) Alcohol abuse Code(s): F10.10 - Alcohol abuse, uncomplicated Brief History: Patient is a 43-year-old female with an extensive history of alcohol abuse. Patient says secondary to life stressors patient had a suicide attempts with drinking rubbing alcohol. She says she normally drinks 12 pack of beer a day. However per nursing CIWA has been 0 and there is seeking Ativan. She has been homeless since April 11 which is a new status for her. During the interview she is quite irritable, demanding and entitled. Admits to depressed mood and wanting to cry most of the time. However, at this time she denies suicidal or homicidal ideas plan. Past medications include Neurontin 600 mg p.o. 3 times daily and Lamictal. Patient says she had "some facial tics with an unknown antipsychotic. Past psych: Patient admits to at least 20 inpatient admission mostly due to detox from alcohol. She has had 3 suicide attempts all being drinking rubbing alcohol. She says she has been diagnosed with PTSD depression and anxiety and possibly bipolar in the past. Not getting outpatient treatment at this time. Was on Suboxone back in April. Past medical: Seizure a disorder that is not treated, anemia, hep C Past Famhx: "Everybody is everything." Past Social: Patient is working as a prostitute. She has extensive history of substance use but most recently has been abusing alcohol. Tobacco Use In Past 30 Days: Yes How Often Do You Have a Drink Containing Alcohol: 4 or more times a week Hospital Course: Patient was admitted to a locked, inpatient psychiatric unit. A general medical consultation was obtained. A neurological consultation was obtained. Appropriate precautions were in place throughout patient's hospital stay. Patient was seen and examined on the unit by psychiatry and also visited by counselor. Psychotropic medications were adjusted. Patient tolerated medication changes well without side effects. There was no evidence of any suicidality or homicidality on the inpatient unit. There was no evidence of self-care deficit. Counselor did try to work with patient to arrange for some sort of long term after discharge in [place] (as homeless resources in our area are very limited), but the patient declined this assistance. Patient did experience an episode of C. difficile diarrhea while on the inpatient unit and completed a course of treatment with oral vancomycin for this problem. On the day of discharge: Patient seen and examined with nurse. Chart reviewed. Case discussed with nursing staff. No behavioral issues noted overnight. Case discussed with counselor. On my examination today, the patient feels ready for discharge from the inpatient psychiatric unit today. She denies any suicidal or homicidal ideation, intent or plan. I can elicit no severe depressive or hypomanic/manic symptoms. She denies any audiovisual hallucinations. I can elicit no delusional material. There is no evidence of impairment in reality construction. She denies side effects from medications besides some mild tiredness. No physical complaints. Suicide and violence risk assessment on day of discharge both suggest lower imminent risk from mental illness, and the patient's level of function is adequate for outpatient care. Patient has maximized benefit from this inpatient psychiatric hospital stay and will be discharged today with psychiatric follow-up as arranged by counselor. Patient is also to follow up with primary care. I have counseled the patient to abstain from substances of abuse. I have counseled the patient regarding warning signs for need to return to the psychiatric emergency room as part of a general safety plan. - Discharge Discharge Date: 07/10/18 - Discharge Diagnosis (1) Adjustment disorder with mixed disturbance of emotions and conduct Diagnosis: Principal Code(s): F43.25 - Adjustment disorder with mixed disturbance of emotions and conduct Status: Resolved (2) Alcohol abuse Diagnosis: Secondary Code(s): F10.10 - Alcohol abuse, uncomplicated Status: Chronic Discharge Disposition: As per counselor's notes - Discharge Instructions Discharge Diet: Regular Diet Activities You Can Perform: Weight Bearing As Tolerat - Discharge Time <= 30 minutes Mental Status Examination Appearance: Appropriate Consciousness: Alert Orientation: x4 Motor Activity: Other (No motoric abnormalities noted) Speech: Unremarkable Language: Adequate Fund of Knowledge: Adequate Attention and Concentration: Adequate Memory: Unremarkable (Remains grossly intact on clinical exam) Mood: Appropriate Affect: Appropriate Thought Process & Associations: Intact, Logical, Goal directed, Linear Thought Content: Appropriate Hallucination Type: None Delusion Type: None Suicidal Ideation: No Suicidal Plan: No Suicidal Intention: No Homicidal Ideation: No Homicidal Plan: No Homicidal Intention: No Insight: Adequate Judgment: Adequate Discharge/Advance Care Plan - Results Vital Signs: Last Vital Signs Temp 97.3 F L 07/10/18 06:09 Pulse 75 07/10/18 06:09 Resp 15 07/10/18 06:09 BP 96/59 L 07/10/18 06:09 Pulse Ox 97 07/09/18 17:47 Lab Results: Laboratory Results Hemoglobin A1c 5.1 % (4.3-6.0) 06/22/18 07:36 Triglycerides 70 mg/dL (42-150) 06/22/18 07:36 Cholesterol 157 mg/dL (120-200) 06/22/18 07:36 LDL Cholesterol, Calc 63 mg/dL (0-99) 06/22/18 07:36 HDL Cholesterol 80.5 mg/dL (40.0-60.0) H 06/22/18 07:36 Summary of Procedures: None done Imaging: ITS Impressions Soft Tissue Ultrasound 07/08/18 00:00 CONCLUSION: 1. There is a small focal fluid collection in the area of clinical concern extending to the skin surface which would be consistent with a small abscess based on the clinical history. Pending Results: None - Medications Number of antipsychotic medications at discharge: 1 - Discharge Care Plan Goals to Promote Your Health: * To prevent worsening of your condition and complications * To maintain your health at the optimal level Directions to Meet Your Goals: Take your medications as prescribed Follow your dietary instruction Follow activity as directed Keep your appointments as scheduled Take your immunizations and boosters as scheduled If your symptoms worsen call your PCP, if no PCP go to Urgent Care Center or Emergency Room For 02/04 questions related to your inpatient stay or results of tests pending at discharge, please contact Dr. Ant Palomo MD at [phone] Smoking is Dangerous to Your Health. Avoid second hand smoking
== END 2018-07-10 15:00 | disposition home or self-care (01) ==
LOC: H260 16:50 → H4EA 06-26 17:13 → H260 06-26 17:30 → H4EA 06-26 17:55 → HCPC 07-08 09:02 → H4EA 07-08 09:05
PROVIDERS: ADMIT Psychiatry & Neurology Psychiatry; ATTEND Psychiatry & Neurology Psychiatry